=== PATIENT | female | born 1955 | race Caucasian/White ===

== ENCOUNTER → 2018-06-29 10:35 | Outpatient (CLI) | payer OTHER, SELFPAY ==
[2018-06-29 12:55] LABS: Absolute Lymphocyte Count 2.28 X10^3/ul (0.83-4.51); Absolute Neutrophil Count 4.1 X10^3/uL (2.0-7.7); Basophil# 0.04 X10^3/uL; Basophil% 0.6 % (0-1); Eosinophil# 0.15 X10^3/uL; Eosinophils% 2.1 % (0-5); Hematocrit 39.7 % (37-47); Lymphocyte # 2.28 X10^3/ul (4.0); Lymphocyte % 32.3 % (19-41); Mean Corp Hgb Conc 32.7 g/gl (32-36); Mean Corpuscular Hgb 30.7 pg (27.0-32.0); Mean Corpuscular Volume 93.6 fL (81-99); Mean Platelet Vol. 11.1 fl (6.2-12.0); Monocyte% 7.1 % (0-10); Neutrophil # 4.07 X10^3/uL (2.7-7.7); Neutrophil % 57.8 % (47-70); Platelet Count 304 K/mm3 (150-450); RBC Distribution Width CV 13.2 % (11.6-14.6); RBC Distribution Width SD 43.8 fl (35.1-43.9); Red Blood Count 4.24 M/mm3 (4.2-5.4); White Blood Count 7.1 K/mm3 (4.4-11.0)
[2018-06-29 13:03] LABS: POSITIVE COUNT NO; POSITIVE DIFFERENTIAL NO; POSITIVE MORPHOLOGY NO
[2018-06-29 13:22] LABS: ALB/GLOB Ratio 1.1 RATIO (0.9-2.4); AST(SGOT) 26 U/L (15-37); Alanine Aminotransfer ALT/SGPT 28 U/L (13-56); Alkaline Phosphatase 63 U/L (45-117); Anion Gap 8 (5-15); BUN 16 mg/dL (7-18); BUN/Creat Ratio 24.6 RATIO (10-20); Calcium,Total 9.3 mg/dL (8.5-10.1); Chloride 106 mmol/L (98-107); Creatinine, Serum 0.65 mg/dL (0.55-1.02); EST Glomerular Filtration Rate 98 mL/min (>60); Est Glom Filt Rate - Afr Amer 119 mL/min (>60); Globulin 3.5 g/dL (2.2-4.2); Glucose 90 mg/dL (74-106); Potassium 3.8 mmol/L (3.5-5.1); Protein, Total 7.5 g/dL (6.4-8.2); Sodium Level 143 mmol/L (136-145); Thyroid Stim Hormone (TSH) 2.79 uIU/mL (0.358-3.74)
[2018-06-30 11:12] LABS: Hep C Antibodies <0.1 s/co ratio (0.0-0.9)
== END ==
PROVIDERS: Family Provider Family Medicine Geriatric Medicine; PCP Family Medicine Geriatric Medicine; Visit Provider Family Medicine Geriatric Medicine
DX: I10 Essential (primary) hypertension (principal); Z13.89 Encounter for screening for other disorder
CPT/HCPCS: 36415; 80053; 84443; 85025; 86803

== ENCOUNTER → 2018-06-30 12:14 | Outpatient (CLI) | payer OTHER, SELFPAY ==
--- NOTE | 2018-06-30 12:18 | BI_ITS ---
MAMMOGRAPHY - BILATERAL SCREENING 3-D EMERALD SYNTHESIS REASON FOR EXAM: Female, 63 years old. Bilateral Screening 3-D tomosynthesis PERTINENT HISTORY: Asymptomatic. Patient reports loss of 15 pounds since last mammogram. Family history breast carcinoma, paternal aunt, age 70. TECHNIQUE: 2-D mammograms and 3-D Emerald synthesis of the breast (s) were performed. CAD was performed. COMPARISON: 06/29/2017 through 06/01/2014. FINDINGS: The breast composition is composed of scattered fibroglandular density. No significant asymmetric density, architecture distortion, abnormal microcalcification cluster, dominant mass, adenopathy, skin thickening or nipple retraction identified. Coarse benign-appearing calcifications. BI/SCREENING MAMM (CAD), BILAT IMPRESSION: No mammographic signs of malignancy. Routine yearly mammograms recommended. ASSESSMENT CATEGORY: BIRADS Category 2: Benign. A letter regarding these results will be sent to the patient by the facility within 30 days. FOLLOW UP RECOMMENDATION: Yearly follow up mammogram recommended. (A) Negative mammographic results should not deter biopsy as a palpable lesion should be followed on clinical grounds and biopsy performed if clinically persistent for 3 months or increasing size. Approximately 10% of breast cancers are not detected by mammography. A normal mammogram should not delay biopsy of a clinically suspicious abnormality. Electronically Signed: William Campos, at 21:40 EDT Tel , Service support ,
== END ==
PROVIDERS: Family Provider Family Medicine Geriatric Medicine; PCP Family Medicine Geriatric Medicine; Visit Provider Obstetrics & Gynecology
DX: Z12.31 Encounter for screening mammogram for malignant neoplasm of breast (principal); Z13.820 Encounter for screening for osteoporosis
CPT/HCPCS: 77063; 77067; 77080

== ENCOUNTER 2019-02-03 17:59 | Inpatient (IN) | payer OTHER, SELFPAY ==
[2019-02-03 17:59] VITALS: BP 125/61; PULSE 86; RESP 18; TEMP 36.4; O2SAT 95; BMI 26.8
[2019-02-03 19:11] VITALS: BP 136/87; PULSE 77; RESP 18; O2SAT 100
--- NOTE | 2019-02-03 19:11 | CT_ITS ---
STUDY: CT ABDOMEN AND PELVIS WITH CONTRAST REASON FOR EXAM: Female, 63 years old. Abdominal pain RADIATION DOSAGE (If Supplied By Facility): CTDIvol = ( 11.07 ) mGy, DLP = ( 655.64 ) mGycm TECHNIQUE: Transaxial images were obtained from the dome of the diaphragm to the symphysis pubis without oral contrast. Isovue 300 100ml IV/Oral was administered. Sagittal and coronal images were reconstructed. Individualized dose optimization techniques were used for this CT. COMPARISON: None. FINDINGS: There are mild lower lobe pulmonary infiltrates. The visualized portions of the heart are within normal limits. Normal liver. There is prior cholecystectomy with surgical clips in the gallbladder fossa. Normal spleen. Normal pancreas. There are borderline dilated bile ducts likely due to prior cholecystectomy. Normal bilateral adrenal glands. There is a 1.5 cm right renal cyst. Normal left kidney. There is a distended stomach. There is significant small bowel dilatation with transition point in the mid pelvis. Multiple colonic diverticula. There is a moderate colonic fecal loading. There is no free surgical clips within the pelvis. There are bilateral fatty inguinal hernias. Normal abdominal aorta. Normal inferior vena cava. Normal retroperitoneum. Normal urinary bladder. There is significant degenerative changes at the pubic symphysis. There is a bone island within the left iliac wing. There is significant spondylosis with sclerosis of the facets. CT/Abdomen/Pelvis WITH Contrast IMPRESSION: Small bowel obstruction Colonic diverticulosis no diverticulitis, moderate colonic fecal load Mild lower lobe pulmonary infiltrates 1.5 cm right renal cyst Distended stomach Electronically Signed: William Nunez, at 22:53 EDT Tel , Service support ,
[2019-02-03] MEDS: Ondansetron 4 MG/2 ML Vial IV (19:23)
[2019-02-03] MEDS: 0.9% Normal Saline 1,000 ML 1000 ML IV (19:23)
[2019-02-03] MEDS: Morphine 4 MG/ML Syringe IV ×2 (19:25→23:00)
[2019-02-03 19:35] LABS: Absolute Lymphocyte Count 1.34 X10^3/ul (0.83-4.51); Absolute Neutrophil Count 14.5 X10^3/uL (2.0-7.7); Basophil# 0.05 X10^3/uL; Basophil% 0.3 % (0-1); Eosinophil# 0.02 X10^3/uL; Eosinophils% 0.1 % (0-5); Hematocrit 44.6 % (37-47); Hemoglobin 15.1 g/dl (12.0-15.0); Lymphocyte # 1.34 X10^3/ul (4.0); Lymphocyte % 7.9 % (19-41); Mean Corp Hgb Conc 33.9 g/gl (32-36); Mean Corpuscular Hgb 30.6 pg (27.0-32.0); Mean Corpuscular Volume 90.3 fL (81-99); Mean Platelet Vol. 9.9 fl (6.2-12.0); Monocyte% 5.3 % (0-10); Neutrophil # 14.53 X10^3/uL (2.7-7.7); Neutrophil % 86.2 % (47-70); POSITIVE COUNT NO; POSITIVE DIFFERENTIAL NO; POSITIVE MORPHOLOGY NO; Platelet Count 318 K/mm3 (150-450); RBC Distribution Width CV 12.8 % (11.6-14.6); RBC Distribution Width SD 42.2 fl (35.1-43.9); Red Blood Count 4.94 M/mm3 (4.2-5.4); White Blood Count 16.9 K/mm3 (4.4-11.0)
[2019-02-03 19:48] LABS: ALB/GLOB Ratio 1.2 RATIO (0.9-2.4); AST(SGOT) 24 U/L (15-37); Alanine Aminotransfer ALT/SGPT 21 U/L (13-56); Albumin, Serum 4.9 g/dL (3.2-5.0); Alkaline Phosphatase 72 U/L (45-117); Anion Gap 9 (5-15); BUN 20 mg/dL (7-18); BUN/Creat Ratio 22.5 RATIO (10-20); Calcium,Total 10.6 mg/dL (8.5-10.1); Chloride 96 mmol/L (98-107); Creatinine, Serum 0.89 mg/dL (0.55-1.02); EST Glomerular Filtration Rate 68 mL/min (>60); Est Glom Filt Rate - Afr Amer 83 mL/min (>60); Estimated Creatinine Clearance 49.46 ml/min; Glucose 103 mg/dL (74-106); Lipase 150 U/L (73-393); Protein, Total 8.9 g/dL (6.4-8.2); Sodium Level 132 mmol/L (136-145)
--- NOTE | 2019-02-03 20:09 | ED.DCSUM_ITS ---
- ER Visit Summary Date of Service: 02/03/19 Chief Complaint: Abdominal pain History of Present Illness: The patient is a 63 F who presents with abdominal pain that began today. Patient describes the pain is cramping. Patient states the pain is intermittent. Patient states the pain started in her lower abdomen but is now diffuse. Patient states her pain is worse with movement. Patient admits to some nausea but denies any vomiting. Patient denies any diarrhea, melena, or hematochezia. Patient denies any urinary complaints. Physical Examination: Vital signs are stable. Patient is afebrile. Patient is in no acute distress. Oral mucosa is pink and moist. Neck is supple. Trachea is midline. There is no JVD noted. Heart was regular rate and rhythm. Lungs are clear and equal bilateral. Abdomen is soft. There is some left lower quadrant tenderness. There is no rebound or guarding noted. Cranial nerves II through XII are intact. There are no focal motor or sensory deficits noted. The remaining physical exam is within normal limits. Test Results: CBC showed leukocytosis of 16.9. Comprehensive metabolic profile showed a mild hypokalemia of 3.0. CT scan of the abdomen and pelvis shows a small bowel obstruction with a transition point in the mid pelvis. Emergency Department Course and Treatment: Patient was given morphine and Zofran here. Patient was given a repeat dose of morphine. Case was discussed with Dr. Sanchez. She recommended placing an NG tube. She also recommended obtaining a urinalysis. These were ordered. She will admit the patient to her service. Patient and family understood and were agreeable with the plan. All questions were answered. Disposition: Admit to hospital Impression: Small bowel obstruction This note was generated with [employer] dictation software. It may contain incorrect words, spelling, and punctuation that were not noted in review of the chart prior to signing ED Disposition - Plan for ED Patient: Disposition: Acute Care Hospital [facility] Diagnosis: Small bowel obstruction Referrals: Isai Leon Chi, MD [Primary Care Provider] -
[2019-02-03 23:00] VITALS: BP 130/89; PULSE 72; RESP 16; O2SAT 96
--- NOTE | 2019-02-03 23:29 | RAD_ITS ---
STUDY: X-RAY - ABDOMEN/PELVIS REASON FOR EXAM: Female, 63 years old. NG tube placement TECHNIQUE: 1 view COMPARISON: None. FINDINGS: The tip of a nasogastric tube is in the body of the stomach. Mild fecal stasis. Contrast outlines the collecting system. Clips in the right upper quadrant indicate previous cholecystectomy. RAD/Abdomen Single View (Portable) IMPRESSION: A nasogastric tube tip is in the body of the stomach Electronically Signed: Alejandro Nguyen MD at 2:33 EDT Tel , Service support ,
[2019-02-04] VITALS (13 sets, daily range): BP systolic 98–148; BP diastolic 61–84; PULSE 59–96; RESP 14–16; TEMP 36.4–37.3; O2SAT 94–99; BMI 26.8; BMI 27.4; BMI 27.3
--- NOTE | 2019-02-04 00:20 | HP.PCM_ITS ---
History of Present Illness Date of Admission: 02/04/19 The patient is a 63 year old F presented to the ER due to abdominal pain. Patient states she has had 3 previous episodes in the last year with pain in the left lower quadrant. However this 1 did not improve over the day- woke up in the morning and had pain also nausea denies any vomiting. Previously the others only lasted the a.m. and some of the afternoon or just in the a.m. She did did try to take increased fiber last episode which did not help and may have even made it worse per the patient. Patient states her pain prior to coming in with a 10/. Patient states she had bowel movements yesterday but they were small along with flatus leak yesterday but denies any today. Patient states she normally has bowel movements daily. CT of the abdomen pelvis did show a bowel obstruction initially called transition in the pelvis however patient does have left spigelian hernia. Past Medical History Allergies No Known Allergies Allergy (Verified 02/03/19 18:02) Home Medications: Ambulatory Orders Medication Instructions Recorded Aspirin [Aspir-Low] 81 mg PO DAILY 12/25/16 Biotin 5 mg PO DAILY 12/25/16 Calcium Carbonate/Vitamin D3 1 each PO DAILY 12/25/16 [Caltrate 600 Plus D3 Tablet] Cyanocobalamin (Vitamin B-12) 2,500 mcg PO DAILY 12/25/16 [Vitamin B12] Levothyroxine [Synthroid] 25 mcg PO DAILY 12/25/16 Losartan/Hydrochlorothiazide 1 each PO DAILY 12/25/16 [Losartan-Hctz 50-12.5 mg Tab] [place]-3S/Dha/Epa/Fish Oil [Fish 1 each PO DAILY 12/25/16 Oil [place]-3 Softgel] Vitamin E 400 unit PO DAILY 12/25/16 Zinc 100 mg PO DAILY 12/25/16 Doxycycline 100 mg PO BID 07/21/17 Prednisone 10 mg PO DAILY 07/21/17 Surgical History: cholecystectomy, - - left leg varicose veins, colonoscopy abt 5 years ago by Chloe Psychiatric History: No pertinent psych hx CLINICAL APPEALS RN History: No pertinent CLINICAL APPEALS RN history Lives: Spouse/ Significant Other Smoking Status: Never smoker Drugs: None - *Family History Maternal History Items: No pertinent history Review of Systems Constitutional: Reports: Anorexia. Denies: Fever Cardiovascular: Denies: Chest Pain VTE Information - Inpt Only VTE Present on Admission: Yes VTE Mechan Device Prophylaxis: SCD's Patient Problems: Active and Suspected Problems Small bowel obstruction (Acute) - Physical Exam General: Alert HEENT: Atraumatic Lungs: Normal air movement Cardiovascular: Regular rate Abdomen: Soft, Distended - moderate, Tender - LLQ, no PS, Hernia - left lower lat abd wall +bulge unable to reduce Extremities: No clubbing, No cyanosis, No edema Neurological: Cranial nerves II-XII grossly intact Psych/Mental Status: Normal Affect Vital Signs Temp Pulse Resp BP Pulse Ox 97.6 F L 72 16 130/89 H 96 02/03/19 17:59 02/03/19 23:00 02/03/19 23:00 02/03/19 23:00 02/03/19 23:00 Oxygen Delivery Method Room Air Weight: 142 lb Body Mass Index (BMI) 26.8 Laboratory Tests Past 24 Hrs 02/03/19 02/03/19 19:20 19:20 WBC 16.9 H RBC 4.94 Hgb 15.1 H Hct 44.6 MCV 90.3 MCH 30.6 MCHC 33.9 RDW 12.8 RDW Differential 42.2 Plt Count 318 MPV 9.9 Immature Gran % (Auto) 0.200 Neut % (Auto) 86.2 H Lymph % (Auto) 7.9 L [place] % (Auto) 5.3 Eos % (Auto) 0.1 Baso % (Auto) 0.3 Absolute Neuts (auto) 14.5 H Absolute Lymphs (auto) 1.34 Total Counted Not Reportable Sodium 132 L Potassium 3.0 L Chloride 96 L Carbon Dioxide 27.0 Anion Gap 9 BUN 20 H Creatinine 0.89 Estim Creat Clear Calc 49.46 Est GFR (MDRD) Af Amer 83 Est GFR (MDRD) Non-Af 68 BUN/Creatinine Ratio 22.5 H Glucose 103 Calcium 10.6 H Total Bilirubin 0.80 AST 24 ALT 21 Alkaline Phosphatase 72 Total Protein 8.9 H Albumin 4.9 Globulin 4.0 Albumin/Globulin Ratio 1.2 Lipase 150 Assessment/Plan All Active Problems Small bowel obstruction (Acute) 63-year-old female with bowel obstruction, incarcerated left spigelian hernia 1. In reviewing CT abdomen pelvis patient appears to have an incarcerated left abdominal wall hernia causing the obstruction, which wasn't in the original report. Discussed with patient and family and recommend surgery. will plan for exploratory laparoscopy, possible laparotomy, possible bowel resection, repair of hernia. Risks include but not limited to bleeding, infection, adhesions, injury to another organ (i.e SB, colon, etc.), recurrent hernia, and anesthesia. Patient no further questions at this time. Thi Sanchez M.D. Pager: [phone] [facility] [address] [place] [address] [address] [place] [address] Office: [phone]
[2019-02-04 00:27] LABS: Bacteria 0 SEEN /hpf (None Seen); Mucous, Urine 0 SEEN /hpf (<or=2+)
[2019-02-04 00:31] LABS: Color, Urine Yellow (Yellow); Glucose, Dipstick Normal (Normal); Ketone-Dipstick 15 mg/dl (Negative); Leukocyte Esterase-Dipstick Negative /ul (Negative); Nitrite-Dipstick Negative (Negative); Occult Blood-Urine 10 /ul (Negative); Protein-Dipstick Negative (Negative); Urine Bilirubin Dipstick Negative (Negative); Urine Clarity Clear (Clear); Urine Urobilinogen Normal (Normal)
[2019-02-04] MEDS: Oxymetazoline 0.05% 1 SPRAY SPRAY.BTL 2 SPRAY NASAL (00:39)
[2019-02-04 00:44] LABS: Red Blood Cells-Urine 0-5 SEEN /hpf (0-5); Squamous Epithelial Cells - UA 0-5 SEEN /hpf (5-10); White Blood Cells 0-5 SEEN /hpf (0-5)
--- NOTE | 2019-02-04 02:00 | COL_PTH ---
PATIENT: SHARON VANCE LOC: MS3 U#:[id number] AGE/SX: 63/F ROOM: GA307 RE02/04/[address]: Dr. Thi Sanchez MD : [id number] BED: 1 DIS: 02/07/2019 SPEC #: [id number] RECD: 02/06/19 07:51 STATUS: CHETAN REQ #: [id number] JULIEN: 02/04/19 02:[address]: Thi Sanchez DEPT: SURGICAL PATHOLOGY RECD BY: Miriam Fishman ENTERED: 02/06/19 09:18 SP TYPE: COLON OTHR DR: Dr. Isai Leon MD Tissues: Colon, NOS Procedures: Surgery Specimen Level V HEADER OPERATION: Exploratory laparoscopy converted to laparotomy, small bowel PRE-OP DIAGNOSIS: Incarcerated spigelian hernia, small bowel obstruction TISSUE SUBMITTED: Small bowel MICROSCOPIC DIAGNOSIS Small bowel, segmental resection: Serosal congestion, hemorrhage and fibrinoid material suggestive of possible adhesion. AM:jay 02/07/19 COMMENT Clinical correlation is suggested. Case has been reviewed in consultation with Dr. Christina who concurs with the above diagnosis. IDC:SUSIE MICROSCOPIC DESCRIPTION Slides are reviewed. GROSS DESCRIPTION Received in fixative is one container labeled with the patient's name and designated small bowel. The specimen consists of a segment of small bowel measuring 8 cm in length and 2 cm in diameter. The attached mesenteric fat measures 1.5 cm in width. Also present in the container is a donut-shaped tissue measuring 3.5 x 1 x 0.5 cm. Multiple liz are noted in this piece. Also present in the container are two small pieces of tissue with stapled possible bowel tissue measuring in aggregate 1.5 x 1.5 x 0.5 cm. Both resection margins of the bowel piece are stapled. 1 cm away from one resection margin is an area of serosal congestion that measures 4 cm in length. The mucosa appears unremarkable. Scrap Baller sections are submitted in five cassettes as follows: 1-4 - largest segment of bowel (1 - resection margin, 2 - congested serosal area of small bowel, 3 - loss prevention representative section from other area, 4 - mesenteric tissue), 5 - donut-shaped piece of tissue and smaller pieces of tissue. / SUSIE:jay 02/06/19 TC:5 CPT: 66236
--- NOTE | 2019-02-04 04:19 | PCM.OPRPT ---
Report of Operation Date of Procedure: 02/04/19 Pre-Operative Diagnosis: Incarcerated left spigelian hernia Post-Operative Diagnosis: Strangulated left spigelian hernia Surgery/Procedure Performed:: Exploratory laparoscopic converted to laparotomy, small bowel resection, repair of left spigelian hernia incident response engineer: Yanet Sexton Anesthesiologist: Kristopher Sharpe Special Medications: Cefotetan 2 g IV x1 Specimen's removed: Small bowel Estimated Blood Loss (mL): <60 cc Fluids Replaced: 2000 cc Description of Procedure: Indication: 63-year-old female presented to the ER due to left lower abdominal pain and diffuse abdominal pain with nausea. CT abdomen pelvis was done which consistent with a small bowel obstruction due to left spigelian hernia. NG was placed in the ER. Patient was brought to the operating room placed supine on the operating table. Correct patient, procedure, site, positioning, special equipment was verified prior to procedure. General anesthesia was induced. Patient abdomen was prepped draped in usual sterile fashion. An incision was made in the natural skin line above the umbilicus. The fascia was elevated and incised. The peritoneum was elevated and incised. Entry into the peritoneum was confirmed visually and no bowel was noted in the vicinity of the incision. Jones trocar was placed. The abdomen was insufflated with carbon dioxide to a pressure of 12-15 mmHg. Patient tolerated insufflation well. The laparoscope was then inserted and abdomen inspected. No injuries from initial trocar placement were noted. Additional trochars were then inserted in the following locations 5 mm trocar in the right lower quadrant. There is noted to be an incarcerated left spigelian hernia. This was able to be gently reduced however the bowel still had area of questionable viability. A lower midline incision was made with 15 blade scalpel. Deepened with electrocautery to the fascia. The abdomen was entered under direct visualization. A small wound protector was placed. Again the section of distal jejunum was visualized and still there is an area of questionable viability. This section of small bowel resected approximately 10 cm. The bowel was divided with a cutting linear stapler-DIEGO 75 at each resection margin and passed off the table as specimen. Thank antimesenteric angles of the proximal and distal segments were then approximated. Enterotomies were made in the antimesenteric borders and the cutting linear stapler inserted and fired. The lumen was inspected for hemostasis. The enterotomy was closed with a single firing of TL 60 stapler. Bleeding of the staple line was oversewn with 3-0 Vicryl. The anastomosis was assessed and felt to be patent and small bowel contents easily passed through. The mesentery was closed with a running 3-0 Vicryl suture. The peritoneum of the spigelian hernia was closed with 2-0 Vicryl sutures. The abdomen was reinsufflated with air and suture passer with 0 Prolene were used to close the spigelian hernia defect, which was small only about 1.1 cm. Again the anastomosis was visualized no further bleeding. Abdomen was irrigated with saline. Secondary trochars removed under direct vision. No bleeding was noted the trocar sites. The laparoscope was withdrawn and umbilical trocar removed. The abdomen was allowed to collapse. The fascia of the 12 mm trocar was closed with a [id number] 0 Vicryl suture. The lower midline incision was closed with 1-0 PDS. The skin was closed with sutures of 4-0 Monocryl and Steri-Strips. The patient was extubated. The patient tolerated procedure well and was taken to the postanesthesia care unit in stable condition. - Complications none
[2019-02-04] MEDS: Bupiv/Epi 0.5% Mpf 30 ML Vial (04:26)
--- NOTE | 2019-02-04 04:30 | OP.PCM_ITS ---
Report of Operation Date of Procedure: 02/04/19 Pre-Operative Diagnosis: Incarcerated left spigelian hernia Post-Operative Diagnosis: Strangulated left spigelian hernia Surgery/Procedure Performed:: Exploratory laparoscopic converted to laparotomy, small bowel resection, repair of left spigelian hernia personal banking officer: Yanet Sexton Anesthesiologist: Kristopher Sharpe Special Medications: Cefotetan 2 g IV x1 Specimen's removed: Small bowel Estimated Blood Loss (mL): <60 cc Fluids Replaced: 2000 cc Description of Procedure: Indication: 63-year-old female presented to the ER due to left lower abdominal pain and diffuse abdominal pain with nausea. CT abdomen pelvis was done which consistent with a small bowel obstruction due to left spigelian hernia. NG was placed in the ER. Patient was brought to the operating room placed supine on the operating table. Correct patient, procedure, site, positioning, special equipment was verified prior to procedure. General anesthesia was induced. Patient abdomen was prepped draped in usual sterile fashion. An incision was made in the natural skin line above the umbilicus. The fascia was elevated and incised. The peritoneum was elevated and incised. Entry into the peritoneum was confirmed visually and no bowel was noted in the vicinity of the incision. Jones trocar was placed. The abdomen was insufflated with carbon dioxide to a pressure of 12-15 mmHg. Patient tolerated insufflation well. The laparoscope was then inserted and abd omen inspected. No injuries from initial trocar placement were noted. Additional trochars were then inserted in the following locations 5 mm trocar in the right lower quadrant. There is noted to be an incarcerated left spigelian hernia. This was able to be gently reduced however the bowel still had area of questionable viability. A lower midline incision was made with 15 blade scalpel. Deepened with electrocautery to the fascia. The abdomen was entered under direct visualization. A small wound protector was placed. Again the section of distal jejunum was visualized and still there is an area of questionable viability. This section of small bowel resected approximately 10 cm. The bowel was divided with a cutting linear stapler-DIEGO 75 at each resection margin and passed off the table as specimen. Thank antimesenteric angles of the proximal and distal segments were then approximated. Enterotomies were made in the antimesenteric borders and the cutting linear stapler inserted and fired. The lumen was inspected for hemostasis. The enterotomy was closed with a single firing of TL 60 stapler. Bleeding of the staple line was oversewn with 3-0 Vicryl. The anastomosis was assessed and felt to be patent and small bowel contents easily passed through. The mesentery was closed with a running 3-0 Vicryl suture. The peritoneum of the spigelian hernia was closed with 2-0 Vicryl sutures. The abdomen was reinsufflated with air and suture passer with 0 Prolene were used to close the spigelian hernia defect, which was small only about 1.1 cm. Again the anastomosis was visualized no further bleeding. Abdomen was irrigated with saline. Secondary trochars removed under direct vision. No bleeding was noted the trocar sites. The laparoscope was withdrawn and umbilical trocar removed. The abdomen was allowed to collapse. The fascia of the 12 mm trocar was closed with a [id number] 0 Vicryl suture. The lower midline incision was closed with 1-0 PDS. The skin was closed with sutures of 4-0 Monocryl and Steri-Strips. The patient was extubated. The patient tolerated procedure well and was taken to the postanesthesia care unit in stable condition. - Complications none
[2019-02-04 05:31] LABS: Absolute Neutrophil Count 11.6 X10^3/uL (2.0-7.7); Basophil# 0.03 X10^3/uL; Basophil% 0.2 % (0-1); Eosinophil# 0.02 X10^3/uL; Eosinophils% 0.1 % (0-5); Hematocrit 37.8 % (37-47); Hemoglobin 12.5 g/dl (12.0-15.0); Lymphocyte % 9.4 % (19-41); Mean Corp Hgb Conc 33.1 g/gl (32-36); Mean Corpuscular Hgb 30.7 pg (27.0-32.0); Mean Corpuscular Volume 92.9 fL (81-99); Mean Platelet Vol. 10.1 fl (6.2-12.0); Monocyte# 0.87 X10^3/uL; Monocyte% 6.3 % (0-10); Neutrophil # 11.61 X10^3/uL (2.7-7.7); Neutrophil % 83.7 % (47-70); Platelet Count 287 K/mm3 (150-450); RBC Distribution Width CV 12.7 % (11.6-14.6); RBC Distribution Width SD 42.3 fl (35.1-43.9); Red Blood Count 4.07 M/mm3 (4.2-5.4); White Blood Count 13.9 K/mm3 (4.4-11.0)
[2019-02-04 05:35] LABS: POSITIVE COUNT NO; POSITIVE DIFFERENTIAL NO; POSITIVE MORPHOLOGY NO
[2019-02-04 05:40] LABS: Anion Gap 9 (5-15); BUN 19 mg/dL (7-18); BUN/Creat Ratio 16.8 RATIO (10-20); Calcium,Total 8.2 mg/dL (8.5-10.1); Chloride 104 mmol/L (98-107); Creatinine, Serum 1.13 mg/dL (0.55-1.02); EST Glomerular Filtration Rate 52 mL/min (>60); Est Glom Filt Rate - Afr Amer 63 mL/min (>60); Estimated Creatinine Clearance 38.95 ml/min; Glucose 149 mg/dL (74-106); Potassium 3.9 mmol/L (3.5-5.1); Sodium Level 139 mmol/L (136-145)
[2019-02-04] MEDS: Lactated Ringers 1,000 ML 999 ML IV (09:00)
[2019-02-04] MEDS: BENZOCAINE/MENTHOL 1 LOZENGE MUCOUS MEM ×4 (09:07→20:55)
--- NOTE | 2019-02-04 09:59 | PCM.PN.SRG ---
Patient Problems: Active and Suspected Problems Small bowel obstruction (Acute) Subjective: Patient's pain is controlled without any medications currently, she is complains of abdominal soreness. Patient's urine output was low with 25 cc from 6 to 7 AM. 1 L bolus ordered. - Physical Exam General: Alert, Oriented x3, Cooperative, No apparent distress Lungs: Normal air movement Cardiovascular: Regular rate Abdomen: Soft, Non-Distended, Tender - Properly tender, incisions dressed clean dry and intact. Extremities: No clubbing, No cyanosis, No edema Vital Signs Temp Pulse Resp BP Pulse Ox 99.1 F 88 16 113/72 97 02/04/19 09:56 02/04/19 09:56 02/04/19 09:56 02/04/19 09:56 02/04/19 09:56 Oxygen Delivery Method Room Air Weight: 144 lb 13.499 oz Body Mass Index (BMI) 27.3 Intake and Output for Last 24 Hours 02/02/19 02/03/19 02/04/19 23:59 23:59 23:59 Intake Total 3319 / 3319 Output Total 180 / 180 Balance 3139 / 3139 Laboratory Tests Past 24 Hrs 02/03/19 02/03/19 02/04/19 19:20 19:20 00:20 WBC 16.9 H RBC 4.94 Hgb 15.1 H Hct 44.6 MCV 90.3 MCH 30.6 MCHC 33.9 RDW 12.8 RDW Differential 42.2 Plt Count 318 MPV 9.9 Immature Gran % (Auto) 0.200 Neut % (Auto) 86.2 H Lymph % (Auto) 7.9 L [place] % (Auto) 5.3 Eos % (Auto) 0.1 Baso % (Auto) 0.3 Absolute Neuts (auto) 14.5 H Absolute Lymphs (auto) 1.34 Total Counted Not Reportable Sodium 132 L Potassium 3.0 L Chloride 96 L Carbon Dioxide 27.0 Anion Gap 9 BUN 20 H Creatinine 0.89 Estim Creat Clear Calc 49.46 Est GFR (MDRD) Af Amer 83 Est GFR (MDRD) Non-Af 68 BUN/Creatinine Ratio 22.5 H Glucose 103 Calcium 10.6 H Total Bilirubin 0.80 AST 24 ALT 21 Alkaline Phosphatase 72 Total Protein 8.9 H Albumin 4.9 Globulin 4.0 Albumin/Globulin Ratio 1.2 Lipase 150 Urine Color Yellow Urine Clarity Clear Urine pH 7.0 Ur Specific [place] 1.010 Urine Protein Negative Urine Glucose (UA) Normal Urine Ketones 15 H Urine Occult Blood 10 H Urine Nitrite Negative Urine Bilirubin Negative Urine Urobilinogen Normal Ur Leukocyte Esterase Negative Urine RBC 0-5 SEEN Urine WBC 0-5 SEEN Ur Squamous Epith Cells 0-5 SEEN Urine Bacteria 0 SEEN Urine Mucus 0 SEEN 02/04/19 02/04/19 05:20 05:20 WBC 13.9 H RBC 4.07 L Hgb 12.5 Hct 37.8 MCV 92.9 MCH 30.7 MCHC 33.1 RDW 12.7 RDW Differential 42.3 Plt Count 287 MPV 10.1 Immature Gran % (Auto) 0.300 Neut % (Auto) 83.7 H Lymph % (Auto) 9.4 L [place] % (Auto) 6.3 Eos % (Auto) 0.1 Baso % (Auto) 0.2 Absolute Neuts (auto) 11.6 H Absolute Lymphs (auto) 1.30 Total Counted Not Reportable Sodium 139 Potassium 3.9 Chloride 104 Carbon Dioxide 26.0 Anion Gap 9 BUN 19 H Creatinine 1.13 H Estim Creat Clear Calc 38.95 Est GFR (MDRD) Af Amer 63 Est GFR (MDRD) Non-Af 52 L BUN/Creatinine Ratio 16.8 Glucose 149 H Calcium 8.2 L Total Bilirubin AST ALT Alkaline Phosphatase Total Protein Albumin Globulin Albumin/Globulin Ratio Lipase Urine Color Urine Clarity Urine pH Ur Specific [place] Urine Protein Urine Glucose (UA) Urine Ketones Urine Occult Blood Urine Nitrite Urine Bilirubin Urine Urobilinogen Ur Leukocyte Esterase Urine RBC Urine WBC Ur Squamous Epith Cells Urine Bacteria Urine Mucus Medical Necessity - Tobacco Use Smoking Status: Former smoker Assessment/Plan All Active Problems Small bowel obstruction (Acute) 61-year-old female postop day 0 status post exploratory laparoscopy, converted to laparotomy with small bowel resection, repair of left spigelian hernia 1. Continue NG/IV fluids/n.p.o. Will await bowel function. Will check NG output later today if minimal may be able to do a clamp trial. 2. Encourage ambulation 3. Pain control 4. Low urine output Kay for I's and O's, 1 L bolus given Thi Sanchez M.D. Pager: [phone] [facility] [address], [address], [address] [place] [address] Office: [phone]
--- NOTE | 2019-02-04 11:26 | CM.UR ---
RN CM Assessment Met face to face with patient for initial transition planning/care coordination assessment. Introduced myself and my role. Verb understanding and agreement for assessment. Presentation: Presented to ER for complaint of abd pain. PCP: Dr. Leon Specialists: clinical rehabilitation specialist Preferred Pharmacy: [facility] Insurance: [employer] Prescription Benefit: Yes via [employer]. Able to afford copays. LNOK: Thaddeus [place] Home: 2 story with first floor master and bathroom. ADLs: Independent with all ADLs. Transportation: Drives self, . DME: wheelchair SNF/HHC: None Passport/waiver conference services director: None Advance Directives: has both living will and DPOA. Explained none on file. , Thaddeus, is DPOA. Requested that she have him bring in copy of advance directives. Verb understanding. DC PLAN: Home. [facility] has a lot of family support. Virginia Campos RN, CCM.
[2019-02-04] MEDS: Morphine 2 MG/ML Syringe IV ×3 (13:31→21:42)
[2019-02-04] MEDS: 0.9% NaCl Peripheral Flush Adult/Peds IV ×2 (13:32→16:46)
--- NOTE | 2019-02-04 17:14 | NURSING ---
NG tube clamped per dr. ramirez's order at 1330.
--- NOTE | 2019-02-04 19:04 | NURSING ---
Dr Sanchez notified of output of 550cc of urine from grullon from ~[address] Sanchez called and notified this RN that ok to remove grullon at this time. Same completed- pt tolerated well.
[2019-02-04] MEDS: Lactated Ringers 1,000 ML 150 ML IV (20:50)
[2019-02-05] VITALS (7 sets, daily range): BP systolic 121–132; BP diastolic 74–81; PULSE 58–76; RESP 15–16; TEMP 37–37.2; O2SAT 93–100
[2019-02-05] MEDS: Lactated Ringers 1,000 ML 150 ML IV (03:24)
[2019-02-05] MEDS: Levothyroxine 25 MCG TABLET PO (06:20)
[2019-02-05 06:49] LABS: Absolute Lymphocyte Count 1.86 X10^3/ul (0.83-4.51); Absolute Neutrophil Count 6.3 X10^3/uL (2.0-7.7); Basophil# 0.04 X10^3/uL; Basophil% 0.4 % (0-1); Eosinophil# 0.11 X10^3/uL; Eosinophils% 1.2 % (0-5); Hematocrit 34.6 % (37-47); Lymphocyte # 1.86 X10^3/ul (4.0); Mean Corp Hgb Conc 31.8 g/gl (32-36); Mean Corpuscular Hgb 30.3 pg (27.0-32.0); Mean Corpuscular Volume 95.3 fL (81-99); Monocyte# 0.93 X10^3/uL; Neutrophil # 6.34 X10^3/uL (2.7-7.7); Neutrophil % 68.1 % (47-70); Platelet Count 249 K/mm3 (150-450); RBC Distribution Width CV 13.3 % (11.6-14.6); RBC Distribution Width SD 46.8 fl (35.1-43.9); Red Blood Count 3.63 M/mm3 (4.2-5.4); White Blood Count 9.3 K/mm3 (4.4-11.0)
[2019-02-05 06:50] LABS: POSITIVE COUNT NO; POSITIVE DIFFERENTIAL NO; POSITIVE MORPHOLOGY NO
[2019-02-05 07:37] LABS: Anion Gap 4 (5-15); BUN 10 mg/dL (7-18); BUN/Creat Ratio 17.8 RATIO (10-20); Calcium,Total 7.8 mg/dL (8.5-10.1); Chloride 109 mmol/L (98-107); Creatinine, Serum 0.56 mg/dL (0.55-1.02); EST Glomerular Filtration Rate 116 mL/min (>60); Est Glom Filt Rate - Afr Amer 140 mL/min (>60); Glucose 95 mg/dL (74-106); Potassium 3.9 mmol/L (3.5-5.1); Sodium Level 141 mmol/L (136-145)
[2019-02-05] MEDS: Ketorolac 30 MG/ML Syringe 15 MG IV (08:39)
[2019-02-05] MEDS: 0.9% NaCl Peripheral Flush Adult/Peds IV (08:40)
--- NOTE | 2019-02-05 08:50 | PCM.PN.SRG ---
Patient Problems: Active and Suspected Problems Small bowel obstruction (Acute) Subjective: Patient ambulating, no flatus, pain controlled, denies any nausea or vomiting NG was removed yesterday and Kay was DC'd yesterday due to good urine output - Physical Exam General: Alert, Oriented x3, Cooperative, No apparent distress Abdomen: Soft, Distended - Mild, Tender - Really tender near incision clean dry and intact/dressed, no peritoneal signs Vital Signs Temp Pulse Resp BP Pulse Ox 98.2 F 60 16 147/86 H 98 02/06/19 07:41 02/06/19 07:41 02/06/19 07:41 02/06/19 07:41 02/06/19 07:41 Oxygen Delivery Method Room Air Weight: 144 lb 13.499 oz Body Mass Index (BMI) 27.3 Intake and Output for Last 24 Hours 02/04/19 02/05/19 02/06/19 23:59 23:59 23:59 Intake Total 5994 / 5994 2471 / 2471 1530 / 1530 Output Total 1405 / 1405 1000 / 1000 1250 / 1250 Balance 4589 / 4589 1471 / 1471 280 / 280 Laboratory Tests Past 24 Hrs 02/06/19 05:28 Sodium 140 Potassium 3.4 L Chloride 108 H Carbon Dioxide 27.0 Anion Gap 5 BUN 10 Creatinine 0.46 L Estim Creat Clear Calc 95.69 Est GFR (MDRD) Af Amer 177 Est GFR (MDRD) Non-Af 146 BUN/Creatinine Ratio 21.8 H Glucose 79 Calcium 7.7 L Medical Necessity - Tobacco Use Smoking Status: Former smoker Assessment/Plan All Active Problems Small bowel obstruction (Acute) 61-year-old female postop day 1 status post exploratory laparoscopy, converted to laparotomy with small bowel resection, repair of left spigelian hernia 1. Continue n.p.o., decrease IV fluids due to good urine output. Will await bowel function. 2. Encourage ambulation 3. Pain control Thi Sanchez M.D. Pager: [phone] [facility] [address] [place] [address], Outpatient [facility]ilion, [address] [place] [address] Office: [phone]
[2019-02-05] MEDS: Lactated Ringers 1,000 ML 100 ML IV ×2 (10:35→20:24)
--- NOTE | 2019-02-05 15:54 | NURSING ---
Up walking hallway 3 times so far this shift-- at least 2 laps each time- around entire unit
[2019-02-06] MEDS: Ketorolac 30 MG/ML Syringe 15 MG IV ×2 (00:42→06:21)
[2019-02-06 06:00] VITALS: BP 134/76; PULSE 70; RESP 16; TEMP 36.9; O2SAT 95
[2019-02-06] MEDS: Levothyroxine 25 MCG TABLET PO (06:07)
[2019-02-06] MEDS: Lactated Ringers 1,000 ML 100 ML IV (06:07)
[2019-02-06 06:34] LABS: Anion Gap 5 (5-15); BUN 10 mg/dL (7-18); BUN/Creat Ratio 21.8 RATIO (10-20); Calcium,Total 7.7 mg/dL (8.5-10.1); Chloride 108 mmol/L (98-107); Creatinine, Serum 0.46 mg/dL (0.55-1.02); EST Glomerular Filtration Rate 146 mL/min (>60); Est Glom Filt Rate - Afr Amer 177 mL/min (>60); Estimated Creatinine Clearance 95.69 ml/min; Glucose 79 mg/dL (74-106); Potassium 3.4 mmol/L (3.5-5.1); Sodium Level 140 mmol/L (136-145)
[2019-02-06 07:41] VITALS: BP 147/86; PULSE 60; RESP 16; TEMP 36.8; O2SAT 98
--- NOTE | 2019-02-06 08:39 | PCM.PN.SRG ---
Patient Problems: Active and Suspected Problems Small bowel obstruction (Acute) Subjective: Patient denies nausea or vomiting, pain controlled with Toradol, ambulating halls, positive flatus - Physical Exam General: Alert, Oriented x3, Cooperative, No apparent distress Lungs: Normal air movement Cardiovascular: Regular rate Abdomen: Soft, Distended - Mild, Tender - Near incisions clean dry and intact with Steri-Strips, no peritoneal signs Extremities: No clubbing, No cyanosis, No edema Vital Signs Temp Pulse Resp BP Pulse Ox 98.2 F 60 16 147/86 H 98 02/06/19 07:41 02/06/19 07:41 02/06/19 07:41 02/06/19 07:41 02/06/19 07:41 Oxygen Delivery Method Room Air Weight: 144 lb 13.499 oz Body Mass Index (BMI) 27.3 Intake and Output for Last 24 Hours 02/04/19 02/05/19 02/06/19 23:59 23:59 23:59 Intake Total 5994 / 5994 2471 / 2471 1530 / 1530 Output Total 1405 / 1405 1000 / 1000 1250 / 1250 Balance 4589 / 4589 1471 / 1471 280 / 280 Laboratory Tests Past 24 Hrs 02/06/19 05:28 Sodium 140 Potassium 3.4 L Chloride 108 H Carbon Dioxide 27.0 Anion Gap 5 BUN 10 Creatinine 0.46 L Estim Creat Clear Calc 95.69 Est GFR (MDRD) Af Amer 177 Est GFR (MDRD) Non-Af 146 BUN/Creatinine Ratio 21.8 H Glucose 79 Calcium 7.7 L Medical Necessity - Tobacco Use Smoking Status: Former smoker Assessment/Plan All Active Problems Small bowel obstruction (Acute) 61-year-old female postop day 2 status post exploratory laparoscopy, converted to laparotomy with small bowel resection, repair of left spigelian hernia 1. Okay for sips, decrease IV fluids due to good urine output. Will await increased bowel function. 2. Encourage ambulation 3. Pain control Thi Sanchez M.D. Pager: [phone] [facility] [address] [place] [address], Outpatient Pavilion, [address] [place] [address] Office: [phone]
--- NOTE | 2019-02-06 08:42 | PN.SURG_ITS ---
Patient Problems: Active and Suspected Problems Small bowel obstruction (Acute) Subjective: Patient denies nausea or vomiting, pain controlled with Toradol, ambulating halls, positive flatus - Physical Exam General: Alert, Oriented x3, Cooperative, No apparent distress Lungs: Normal air movement Cardiovascular: Regular rate Abdomen: Soft, Distended - Mild, Tender - Near incisions clean dry and intact with Steri-Strips, no peritoneal signs Extremities: No clubbing, No cyanosis, No edema Vital Signs Temp Pulse Resp BP Pulse Ox 98.2 F 60 16 147/86 H 98 02/06/19 07:41 02/06/19 07:41 02/06/19 07:41 02/06/19 07:41 02/06/19 07:41 Oxygen Delivery Method Room Air Weight: 144 lb 13.499 oz Body Mass Index (BMI) 27.3 Intake and Output for Last 24 Hours 02/04/19 02/05/19 02/06/19 23:59 23:59 23:59 Intake Total 5994 / 5994 2471 / 2471 1530 / 1530 Output Total 1405 / 1405 1000 / 1000 1250 / 1250 Balance 4589 / 4589 1471 / 1471 280 / 280 Laboratory Tests Past 24 Hrs 02/06/19 05:28 Sodium 140 Potassium 3.4 L Chloride 108 H Carbon Dioxide 27.0 Anion Gap 5 BUN 10 Creatinine 0.46 L Estim Creat Clear Calc 95.69 Est GFR (MDRD) Af Amer 177 Est GFR (MDRD) Non-Af 146 BUN/Creatinine Ratio 21.8 H Glucose 79 Calcium 7.7 L Medical Necessity - Tobacco Use Smoking Status: Former smoker Assessment/Plan All Active Problems Small bowel obstruction (Acute) 61-year-old female postop day 2 status post exploratory laparoscopy, converted to laparotomy with small bowel resection, repair of left spigelian hernia 1. Okay for sips, decrease IV fluids due to good urine output. Will await increased bowel function. 2. Encourage ambulation 3. Pain control Thi Sanchez M.D. Pager: [phone] [facility] [address] [place] [address], Outpatient Pavilion, [address] [place] [address] Office: [phone]
--- NOTE | 2019-02-06 08:43 | PN.SURG_ITS ---
Patient Problems: Active and Suspected Problems Small bowel obstruction (Acute) Subjective: Patient ambulating, no flatus, pain controlled, denies any nausea or vomiting NG was removed yesterday and Kay was DC'd yesterday due to good urine output - Physical Exam General: Alert, Oriented x3, Cooperative, No apparent distress Abdomen: Soft, Distended - Mild, Tender - Really tender near incision clean dry and intact/dressed, no peritoneal signs Vital Signs Temp Pulse Resp BP Pulse Ox 98.2 F 60 16 147/86 H 98 02/06/19 07:41 02/06/19 07:41 02/06/19 07:41 02/06/19 07:41 02/06/19 07:41 Oxygen Delivery Method Room Air Weight: 144 lb 13.499 oz Body Mass Index (BMI) 27.3 Intake and Output for Last 24 Hours 02/04/19 02/05/19 02/06/19 23:59 23:59 23:59 Intake Total 5994 / 5994 2471 / 2471 1530 / 1530 Output Total 1405 / 1405 1000 / 1000 1250 / 1250 Balance 4589 / 4589 1471 / 1471 280 / 280 Laboratory Tests Past 24 Hrs 02/06/19 05:28 Sodium 140 Potassium 3.4 L Chloride 108 H Carbon Dioxide 27.0 Anion Gap 5 BUN 10 Creatinine 0.46 L Estim Creat Clear Calc 95.69 Est GFR (MDRD) Af Amer 177 Est GFR (MDRD) Non-Af 146 BUN/Creatinine Ratio 21.8 H Glucose 79 Calcium 7.7 L Medical Necessity - Tobacco Use Smoking Status: Former smoker Assessment/Plan All Active Problems Small bowel obstruction (Acute) 61-year-old female postop day 1 status post exploratory laparoscopy, converted to laparotomy with small bowel resection, repair of left spigelian hernia 1. Continue n.p.o., decrease IV fluids due to good urine output. Will await bowel function. 2. Encourage ambulation 3. Pain control Thi Sanchez M.D. Pager: [phone] [facility] [address] [place] [address], Outpatient Pavilion, [address] [place] [address] Office: [phone]
[2019-02-06] MEDS: Losartan Potassium 50 MG Tablet PO (11:25)
[2019-02-06] MEDS: hydroCHLOROthiazide 12.5mg 12.5 MG PO (11:26)
[2019-02-06 15:12] VITALS: BP 139/87; PULSE 74; RESP 16; TEMP 37; O2SAT 98
[2019-02-06 21:05] VITALS: BP 135/85; PULSE 73; RESP 16; TEMP 36.7; O2SAT 98
[2019-02-07 04:20] VITALS: BP 144/90; PULSE 64; RESP 16; TEMP 36.8; O2SAT 99
[2019-02-07] MEDS: Acetaminophen 325 MG Tablet 650 MG PO (04:31)
[2019-02-07] MEDS: Levothyroxine 25 MCG TABLET PO (06:24)
--- NOTE | 2019-02-07 07:20 | PN.SURG_ITS ---
Patient Problems: Active and Suspected Problems Small bowel obstruction (Acute) Subjective: Positive bowel movement, tolerating soft diet, ambulating - Physical Exam General: Alert, Oriented x3, Cooperative, No apparent distress HEENT: Atraumatic Lungs: Normal air movement Cardiovascular: Regular rate Abdomen: Soft, Non-Distended, Tender - Near incision, incisions clean dry and intact with Steri-Strips, no peritoneal signs Extremities: No clubbing, No cyanosis, No edema Vital Signs Temp Pulse Resp BP Pulse Ox 98.2 F 64 16 144/90 H 99 02/07/19 04:20 02/07/19 04:20 02/07/19 04:20 02/07/19 04:20 02/07/19 04:20 Oxygen Delivery Method Room Air Weight: 144 lb 13.499 oz Body Mass Index (BMI) 27.3 Intake and Output for Last 24 Hours 02/05/19 02/06/19 02/07/19 23:59 23:59 23:59 Intake Total 2471 / 2471 2366 / 2366 960 / 960 Output Total 1000 / 1000 2125 / 2125 2800 / 2800 Balance 1471 / 1471 241 / 241 -1840 / -1840 Medical Necessity - Tobacco Use Smoking Status: Former smoker Assessment/Plan All Active Problems Small bowel obstruction (Acute) 61-year-old female postop day 3 status post exploratory laparoscopy, converted to laparotomy with small bowel resection, repair of left spigelian hernia 1. Positive bowel function/bowel movements patient tolerated soft diet plan to [place] today Thi Sanchez M.D. Pager: [phone] [facility] [address] [place] [address], [facility], [address] [place] [id number] Office: [phone]
--- NOTE | 2019-02-07 07:20 | PCM.DC.GS ---
Discharge Diet: Light diet - advance as tolerated Discharge Activity: May not drive while taking narcotic pain medications., May Shower Lifting Restrictions: no lifting >20 lb for 4 weeks after surgery Call your doctor if your incision/area has: Continuous Slow Oozing, Sudden Increased Bleeding, Increased Pain/ Swelling, Increased Redness, Foul Smelling Discharge, Swelling at the incision site Call your doctor if you observe: Fever of 101 or Higher Additional Instructions: Okay to take ibuprofen 400-600 mg PO q6hr PRN along with the oxycodone. Avoid Tylenol since there is already Tylenol in the oxycodone. Take all pain meds with food. Oxycodone can cause constipation recommend taking daily stool softener (i.e. Colace/docusate) while taking the pain meds. Allergies/Adverse Reactions: Allergies No Known Allergies Allergy (Verified 02/03/19 18:02) Medications to take at Discharge Aspirin [Aspir-Low] 81 mg PO DAILY 12/25/16 Biotin 5 mg PO DAILY 12/25/16 Calcium Carbonate/Vitamin D3 [Caltrate 600 Plus D3 Tablet] 1 each PO DAILY 12/25/16 Cyanocobalamin (Vitamin B-12) [Vitamin B12] 2,500 mcg PO DAILY 12/25/16 Levothyroxine [Synthroid] 25 mcg PO DAILY 12/25/16 Losartan/Hydrochlorothiazide [Losartan-Hctz 50-12.5 mg Tab] 1 each PO DAILY 12/25/16 [place]-3S/Dha/Epa/Fish Oil [Fish Oil [place]-3 Softgel] 1 each PO DAILY 12/25/16 Vitamin E 400 unit PO DAILY 12/25/16 Oxycodone HCl/Acetaminophen [Percocet 5/325] 1 - 2 tablet PO Q6H PRN PRN 4 Days #15 tablet 02/07/19 Primary Care Physician: Isai Leon Chi, MD [Primary Care Provider] - Test Results: Test results from this visit will be discussed in further detail at your follow-up appointment, if applicable. Please Follow Up With: Thi Sanchez MD - After 5:00/weekends call [phone] with any questions When: Call the office [phone] for a follow-up appointment 2 weeks Proposed Discharge Date: 02/07/19
--- NOTE | 2019-02-07 07:23 | DCINST_ITS ---
Discharge Diet: Light diet - advance as tolerated Discharge Activity: May not drive while taking narcotic pain medications., May Shower Lifting Restrictions: no lifting >20 lb for 4 weeks after surgery Call your doctor if your incision/area has: Continuous Slow Oozing, Sudden Increased Bleeding, Increased Pain/ Swelling, Increased Redness, Foul Smelling Discharge, Swelling at the incision site Call your doctor if you observe: Fever of 101 or Higher Additional Instructions: Okay to take ibuprofen 400-600 mg PO q6hr PRN along with the oxycodone. Avoid Tylenol since there is already Tylenol in the oxycodone. Take all pain meds wi th food. Oxycodone can cause constipation recommend taking daily stool softener (i.e. Colace/docusate) while taking the pain meds. Allergies/Adverse Reactions: Allergies No Known Allergies Allergy (Verified 02/03/19 18:02) Medications to take at Discharge Aspirin [Aspir-Low] 81 mg PO DAILY 12/25/16 Biotin 5 mg PO DAILY 12/25/16 Calcium Carbonate/Vitamin D3 [Caltrate 600 Plus D3 Tablet] 1 each PO DAILY 12/25/16 Cyanocobalamin (Vitamin B-12) [Vitamin B12] 2,500 mcg PO DAILY 12/25/16 Levothyroxine [Synthroid] 25 mcg PO DAILY 12/25/16 Losartan/Hydrochlorothiazide [Losartan-Hctz 50-12.5 mg Tab] 1 each PO DAILY 12/25/16 [place]-3S/Dha/Epa/Fish Oil [Fish Oil [place]-3 Softgel] 1 each PO DAILY 12/25/16 Vitamin E 400 unit PO DAILY 12/25/16 Oxycodone HCl/Acetaminophen [Percocet 5/325] 1 - 2 tablet PO Q6H PRN PRN 4 Days #15 tablet 02/07/19 Primary Care Physician: Isai Leon Chi, MD [Primary Care Provider] - Test Results: Test results from this visit will be discussed in further detail at your follow- up appointment, if applicable. Please Follow Up With: Thi Sanchez MD - After 5:00/weekends call [phone] with any questions When: Call the office [phone] for a follow-up appointment 2 weeks Proposed Discharge Date: 02/07/19
[2019-02-07 09:37] VITALS: BP 122/81; PULSE 74; RESP 16; TEMP 36.7; O2SAT 96
--- NOTE | 2019-02-07 10:09 | PCM.DC.SUM ---
Discharge Date and Diagnosis Date of Admission: 02/04/19 Date of Discharge: 02/07/19 - Primary Discharge Diagnosis Strangulated left spigelian hernia Small bowel obstruction Hospital Course and Treatment Imaging Results: Clinical Impression(s) from Imaging Studies Abdomen/Pelvis CT 02/03/19 19:11 IMPRESSION: Small bowel obstruction Colonic diverticulosis no diverticulitis, moderate colonic fecal load Mild lower lobe pulmonary infiltrates 1.5 cm right renal cyst Distended stomach Electronically Signed: William Nunez at 22:53 EDT Tel , Service support , Left spigelian hernia containing bowel causing the obstruction KUB X-Ray 02/03/19 23:29 IMPRESSION: A nasogastric tube tip is in the body of the stomach Electronically Signed: Alejandro Nguyen MD at 2:33 EDT Tel , Service support , Operations: - - Exploratory laparoscopy converted to mini laparotomy, small bowel resection, repair of left spigelian hernia 02/04/19 Procedures: None Summary of Care Provided: The patient is a 63 year old F resents to the ER 02/03/19 due to diffuse abdominal pain initially started in the left lower quadrant. Patient states she had several episodes of previous pain starting in the left lower quadrant however these did not last as long. Patient states she has had some nausea denies any vomiting. Patient underwent a CT abdomen pelvis which did show bowel obstruction however the spigelian hernia in the left lower quadrant was not called on the initial report which did contain bowel and was the cause of the obstruction. This was unable to be reduced at bedside. Patient's white blood count was also 16.9 on admit. Patient was taken to the OR for exploratory laparoscopy converted to mini laparotomy, small bowel resection, repair of left spigelian hernia. Postoperatively patient did well was kept n.p.o. with IV fluids until she was able to regain bowel function and have a bowel movement. By postop day 2 patient did have flatus as well as a bowel movement was able to be started on clear liquids then advance to soft diet. Postop day 3 she had been tolerating soft diet ambulating pains been controlled was able be discharged home. - Physical Exam General: Alert, Oriented x3, Cooperative, No apparent distress HEENT: Atraumatic Lungs: Normal air movement Cardiovascular: Regular rate Abdomen: Soft, Non-Distended, Tender - Near incision appropriately, incision clean dry and intact with Steri-Strips Extremities: No clubbing, No cyanosis, No edema Neurological: Cranial nerves II-XII grossly intact Psych/Mental Status: Normal Affect Vital Signs Temp Pulse Resp BP Pulse Ox 98.1 F 74 16 122/81 H 96 02/07/19 09:37 02/07/19 09:37 02/07/19 09:37 02/07/19 09:37 02/07/19 09:37 Oxygen Delivery Method Room Air Weight: 144 lb 13.499 oz Body Mass Index (BMI) 27.3 Intake and Output for Last 24 Hours 02/05/19 02/06/19 02/07/19 23:59 23:59 23:59 Intake Total 2471 / 2471 2366 / 2366 960 / 960 Output Total 1000 / 1000 2125 / 2125 2800 / 2800 Balance 1471 / 1471 241 / 241 -1840 / -1840 Discharge Diet: Light diet - advance as tolerated Discharge Activity: May not drive while taking narcotic pain medications., May Shower Call your doctor if your incision/area has: Continuous Slow Oozing, Sudden Increased Bleeding, Increased Pain/ Swelling, Increased Redness, Foul Smelling Discharge, Swelling at the incision site Call your doctor if you observe: Fever of 101 or Higher Cleanse incision/area with: Soap & Water - Do not scrub but okay for water to run over the area Home Medications: Medications to take at Discharge Aspirin [Aspir-Low] 81 mg PO DAILY 12/25/16 Biotin 5 mg PO DAILY 12/25/16 Calcium Carbonate/Vitamin D3 [Caltrate 600 Plus D3 Tablet] 1 each PO DAILY 12/25/16 Cyanocobalamin (Vitamin B-12) [Vitamin B12] 2,500 mcg PO DAILY 12/25/16 Levothyroxine [Synthroid] 25 mcg PO DAILY 12/25/16 Losartan/Hydrochlorothiazide [Losartan-Hctz 50-12.5 mg Tab] 1 each PO DAILY 12/25/16 [place]-3S/Dha/Epa/Fish Oil [Fish Oil [place]-3 Softgel] 1 each PO DAILY 12/25/16 Vitamin E 400 unit PO DAILY 12/25/16 Oxycodone HCl/Acetaminophen [Percocet 5/325] 1 - 2 tablet PO Q6H PRN PRN 4 Days #15 tablet 02/07/19 Following Prescrptions Were Given to Patient: Oxycodone HCl/Acetaminophen [Percocet 5/325] 1 - 2 tablet PO Q6H PRN PRN 4 Days #15 tablet PRN Reason: Pain Primary Care Physician: Isai Leon Chi, MD [Primary Care Provider] - Please Follow Up With: Thi Sanchez MD - After 5:00/weekends call [phone] with any questions When: Call the office [phone] for a follow-up appointment 2 weeks Additional Instructions: Okay to take ibuprofen 400-600 mg PO q6hr PRN along with the oxycodone. Avoid Tylenol since there is already Tylenol in the oxycodone. Take all pain meds with food. Oxycodone can cause constipation recommend taking daily stool softener (i.e. Colace/docusate) while taking the pain meds. Disposition: Home Minutes spent on discharge:: 15 Patient Condition:: Good Medical Necessity - Tobacco Use Smoking Status: Former smoker Meaningful Use Info Meaningful Use Diagnoses (Choose all that apply): None applicable
--- NOTE | 2019-02-07 10:14 | DS.PCM_ITS ---
Discharge Date and Diagnosis Date of Admission: 02/04/19 Date of Discharge: 02/07/19 - Primary Discharge Diagnosis Strangulated left spigelian hernia Small bowel obstruction Hospital Course and Treatment Imaging Results: Clinical Impression(s) from Imaging Studies Abdomen/Pelvis CT 02/03/19 19:11 IMPRESSION: Small bowel obstruction Colonic diverticulosis no diverticulitis, moderate colonic fecal load Mild lower lobe pulmonary infiltrates 1.5 cm right renal cyst Distended stomach Electronically Signed: William Nunez at 22:53 EDT Tel , Service support , Left spigelian hernia containing bowel causing the obstruction KUB X-Ray 02/03/19 23:29 IMPRESSION: A nasogastric tube tip is in the body of the stomach Electronically Signed: Alejandro Nguyen MD at 2:33 EDT Tel , Service support , Operations: - - Exploratory laparoscopy converted to mini laparotomy, small bowel resection, repair of left spigelian hernia 02/04/19 Procedures: None Summary of Care Provided: The patient is a 63 year old F resents to the ER 02/03/19 due to diffuse abdominal pain initially started in the left lower quadrant. Patient states she had several episodes of previous pain starting in the left lower quadrant however these did not last as long. Patient states she has had some nausea denies any vomiting. Patient underwent a CT abdomen pelvis which did show bowel obstruction however the spigelian hernia in the left lower quadrant was not called on the initial report which did contain bowel and was the cause of the obstruction. This was unable to be reduced at bedside. Patient's white blood count was also 16.9 on admit. Patient was taken to the OR for exploratory laparoscopy converted to mini laparotomy, small bowel resection, repair of left spigelian hernia. Postoperatively patient did well was kept n.p.o. with IV fluids until she was able to regain bowel function and have a bowel movement. By postop day 2 patient did have flatus as well as a bowel movement was able to be started on clear liquids then advance to soft diet. Postop day 3 she had been tolerating soft diet ambulating pains been controlled was able be discharged home. - Physical Exam General: Alert, Oriented x3, Cooperative, No apparent distress HEENT: Atraumatic Lungs: Normal air movement Cardiovascular: Regular rate Abdomen: Soft, Non-Distended, Tender - Near incision appropriately, incision clean dry and intact with Steri-Strips Extremities: No clubbing, No cyanosis, No edema Neurological: Cranial nerves II-XII grossly intact Psych/Mental Status: Normal Affect Vital Signs Temp Pulse Resp BP Pulse Ox 98.1 F 74 16 122/81 H 96 02/07/19 09:37 02/07/19 09:37 02/07/19 09:37 02/07/19 09:37 02/07/19 09:37 Oxygen Delivery Method Room Air Weight: 144 lb 13.499 oz Body Mass Index (BMI) 27.3 Intake and Output for Last 24 Hours 02/05/19 02/06/19 02/07/19 23:59 23:59 23:59 Intake Total 2471 / 2471 2366 / 2366 960 / 960 Output Total 1000 / 1000 2125 / 2125 2800 / 2800 Balance 1471 / 1471 241 / 241 -1840 / -1840 Discharge Diet: Light diet - advance as tolerated Discharge Activity: May not drive while taking narcotic pain medications., May Shower Call your doctor if your incision/area has: Continuous Slow Oozing, Sudden Increased Bleeding, Increased Pain/ Swelling, Increased Redness, Foul Smelling Discharge, Swelling at the incision site Call your doctor if you observe: Fever of 101 or Higher Cleanse incision/area with: Soap & Water - Do not scrub but okay for water to run over the area Home Medications: Medications to take at Discharge Aspirin [Aspir-Low] 81 mg PO DAILY 12/25/16 Biotin 5 mg PO DAILY 12/25/16 Calcium Carbonate/Vitamin D3 [Caltrate 600 Plus D3 Tablet] 1 each PO DAILY 12/25/16 Cyanocobalamin (Vitamin B-12) [Vitamin B12] 2,500 mcg PO DAILY 12/25/16 Levothyroxine [Synthroid] 25 mcg PO DAILY 12/25/16 Losartan/Hydrochlorothiazide [Losartan-Hctz 50-12.5 mg Tab] 1 each PO DAILY 12/25/16 [place]-3S/Dha/Epa/Fish Oil [Fish Oil [place]-3 Softgel] 1 each PO DAILY 12/25/16 Vitamin E 400 unit PO DAILY 12/25/16 Oxycodone HCl/Acetaminophen [Percocet 5/325] 1 - 2 tablet PO Q6H PRN PRN 4 Days #15 tablet 02/07/19 Following Prescrptions Were Given to Patient: Oxycodone HCl/Acetaminophen [Percocet 5/325] 1 - 2 tablet PO Q6H PRN PRN 4 Days #15 tablet PRN Reason: Pain Primary Care Physician: Isai Leon Chi, MD [Primary Care Provider] - Please Follow Up With: Thi Sanchez MD - After 5:00/weekends call [phone] with any questions When: Call the office [phone] for a follow-up appointment 2 weeks Additional Instructions: Okay to take ibuprofen 400-600 mg PO q6hr PRN along with the oxycodone. Avoid Tylenol since there is already Tylenol in the oxycodone. Take all pain meds with food. Oxycodone can cause constipation recommend taking daily stool softener (i.e. Colace/docusate) while taking the pain meds. Disposition: Home Minutes spent on discharge:: 15 Patient Condition:: Good Medical Necessity - Tobacco Use Smoking Status: Former smoker Meaningful Use Info Meaningful Use Diagnoses (Choose all that apply): None applicable
== END 2019-02-07 09:48 | disposition home or self-care (01) | DRG 331 ==
LOC: ED 23:36 → MS3 02-04 00:18
PROVIDERS: Admitting Provider Surgery; Emergency Provider Emergency Medicine; Family Provider Family Medicine Geriatric Medicine; PCP Family Medicine Geriatric Medicine; Visit Provider Surgery
PROC: 0WQF4ZZ Repair Abdominal Wall, Percutaneous Endoscopic Approach (ICD-10-PCS; CPT 49320; principal; 2019-02-04 02:00)
DX: K43.6 Other and unspecified ventral hernia with obstruction, without gangrene (principal); Z53.31 Laparoscopic surgical procedure converted to open procedure
CPT/HCPCS: 36415; 74018; 74177; 80048; 80053; 81001; 83690; 85025; 88307; 99285; J7030; J7120; Q9967; A4216; C1760; J2405

== ENCOUNTER → 2019-06-30 10:55 | Outpatient (CLI) | payer OTHER, SELFPAY ==
[2019-02-07 12:38] VITALS: BMI 26.8
[2019-06-30 18:35] LABS: Absolute Lymphocyte Count 2.12 X10^3/uL (0.83-4.51); Absolute Neutrophil Count 5.6 X10^3/uL (2.0-7.7); Basophil% 1.2 % (0-1); Eosinophil# 0.13 X10^3/uL; Eosinophils% 1.5 % (0-5); Hematocrit 40.2 % (37-47); Hemoglobin 13.3 g/dL (12.0-15.0); Lymphocyte # 2.12 X10^3/ul (4.0); Lymphocyte % 24.9 % (19-41); Mean Corp Hgb Conc 33.1 g/dL (32-36); Mean Corpuscular Hgb 31.1 pg (27.0-32.0); Mean Corpuscular Volume 93.9 fL (81-99); Mean Platelet Vol. 10.6 fl (6.2-12.0); Monocyte# 0.54 X10^3/uL; Monocyte% 6.3 % (0-10); NRBC Flagged by Analyzer 0 % (0-5); Neutrophil # 5.62 X10^3/uL (2.7-7.7); Neutrophil % 65.9 % (47-70); Platelet Count 296 K/mm3 (150-450); RBC Distribution Width CV 12.9 % (11.6-14.6); RBC Distribution Width SD 44.5 fl (35.1-43.9); Red Blood Count 4.28 M/mm3 (4.2-5.4); White Blood Count 8.5 K/mm3 (4.4-11.0)
[2019-06-30 19:12] LABS: ALB/GLOB Ratio 1.2 RATIO (0.9-2.4); AST(SGOT) 21 U/L (15-37); Alanine Aminotransfer ALT/SGPT 18 U/L (13-56); Alkaline Phosphatase 70 U/L (45-117); Anion Gap 5 (5-15); BUN 29 mg/dL (7-18); BUN/Creat Ratio 38.3 RATIO (10-20); Calcium,Total 9.6 mg/dL (8.5-10.1); Chloride 103 mmol/L (98-107); Creatinine, Serum 0.76 mg/dL (0.55-1.02); EST Glomerular Filtration Rate 82 mL/min (>60); Est Glom Filt Rate - Afr Amer 99 mL/min (>60); Globulin 3.4 g/dL (2.2-4.2); Glucose 94 mg/dL (74-106); Potassium 3.6 mmol/L (3.5-5.1); Protein, Total 7.4 g/dL (6.4-8.2); Sodium Level 137 mmol/L (136-145); Thyroid Stim Hormone (TSH) 2.44 uIU/mL (0.358-3.74)
== END ==
PROVIDERS: Family Provider Family Medicine Geriatric Medicine; PCP Family Medicine Geriatric Medicine; Visit Provider Family Medicine Geriatric Medicine
DX: I10 Essential (primary) hypertension (principal)
CPT/HCPCS: 36415; 80053; 84443; 85025

== ENCOUNTER → 2019-07-04 10:08 | Outpatient (CLI) | payer OTHER, SELFPAY ==
[2019-02-07 12:38] VITALS: BMI 26.8
--- NOTE | 2019-07-04 10:10 | BI_ITS ---
MAMMOGRAPHY - BILATERAL SCREENING REASON FOR EXAM: Female, 64 years old. Routine annual screening examination. PERTINENT HISTORY: Aunt with breast cancer. TECHNIQUE: Digital bilateral breast emerald (3D mammographic acquisition) in the CC and MLO projections. 2-D mediolateral oblique (MLO) and craniocaudad (CC) views of both breasts were obtained. CAD: Full Field Digital Mammography with Computer Added Detection was performed. COMPARISON: Comparison is made with prior study dated June 30, 2018 and June 29, 2017. FINDINGS: Breast Composition: There are scattered areas of fibroglandular density. There are no dominant masses or suspicious calcifications. Stable appearance of the bilateral axillary lymph nodes. Stable coarse benign-appearing calcifications bilaterally. No other significant abnormalities are identified. There has been no significant change since the prior study. BI/SCREEN MAMM (CAD) W/EMERALD BILAT IMPRESSION: Stable bilateral screening mammogram. Yearly follow-up mammogram recommended. (A) ASSESSMENT CATEGORY: BIRADS Category 2: Benign. A letter regarding these results will be sent to the patient by the facility within 30 days. Approximately 10% of breast cancers are not detected by mammography. A normal mammogram should not delay biopsy of a clinically suspicious abnormality. [id number] Electronically Signed: Harjinder Wan, at 12:38 EDT , Service support ,
== END ==
PROVIDERS: Family Provider Family Medicine Geriatric Medicine; PCP Family Medicine Geriatric Medicine; Referring Provider Obstetrics & Gynecology; Visit Provider Obstetrics & Gynecology
DX: Z12.31 Encounter for screening mammogram for malignant neoplasm of breast (principal)
CPT/HCPCS: 77063; 77067

== ENCOUNTER → 2019-10-17 17:39 | Outpatient (CLI) | payer OTHER, SELFPAY ==
[2019-02-07 12:38] VITALS: BMI 26.8
[2019-10-17 19:20] LABS: Thyroid Stim Hormone (TSH) 2.77 uIU/mL (0.358-3.74)
== END ==
PROVIDERS: Family Provider Family Medicine Geriatric Medicine; PCP Family Medicine Geriatric Medicine; Referring Provider Family Medicine Geriatric Medicine; Visit Provider Family Medicine Geriatric Medicine
DX: E03.9 Hypothyroidism, unspecified (principal)
CPT/HCPCS: 36415; 84443

== ENCOUNTER 2019-11-17 05:45 | Day surgery (SDC) | payer OTHER, SELFPAY ==
--- NOTE | 2019-10-25 02:19 | HP_ITS ---
Intake Vital Signs 10/25/19 Body Mass Index (BMI) 26.8 Intake Visit Reasons: BULGE AT HERNIA INCISION/ SURG 01/2019 Chief Complaint: ABDOMINAL PAIN/CRAMPING Data Entry Associate Required: No Is patient in pain?: No Allergies No Known Allergies Allergy (Verified 10/25/19 13:42) Medications Aspirin [Aspir-Low] 81 mg PO DAILY 12/25/16 [History Confirmed 10/25/19] Biotin 5 mg PO DAILY 12/25/16 [History Confirmed 10/25/19] Calcium Carbonate/Vitamin D3 [Caltrate 600 Plus D3 Tablet] 1 ea PO DAILY 12/25/16 [History Confirmed 10/25/19] Cyanocobalamin (Vitamin B-12) [Vitamin B12] 2,500 mcg PO DAILY 12/25/16 [History Confirmed 10/25/19] Levothyroxine [Synthroid] 25 mcg PO DAILY 12/25/16 [History Confirmed 10/25/19] Losartan/Hydrochlorothiazide [Losartan-Hctz 50-12.5 mg Tab] 1 ea PO DAILY 12/25/16 [History Confirmed 10/25/19] [place]-3S/Dha/Epa/Fish Oil [Fish Oil [place]-3 Softgel] 1 ea PO DAILY 12/25/16 [History Confirmed 10/25/19] Vitamin E 400 unit PO DAILY 12/25/16 [History Confirmed 10/25/19] PFSH Medical History Small bowel obstruction (Acute) Surgical History History of resection of small bowel (Acute ~02/04/19) HPI HPI HPI: SHARON VANCE, is a 64 F who presents to the office today for HPI HPI Surgical H&P: Yes HPI: SHARON VANCE, is a 64 F who presents to the office today for incisional hernia patient status post small bowel resection due to small bowel obstruction from a left spigelian hernia. Patient states that in August she noticed a bulge at her lower midline incision. Patient states she denies any pain, is having bowel function and passing flatus denies any nausea or vomiting and states it is reducible. Exam Const General: cooperative, comfortable, no acute distress Resp Effort & Inspection: normal respiratory effort Cardio Rate: regular rate GI Inspection: non-distended Palpation: soft, no guarding, hernia (Lower midline incision, reducible), nontender Extrem General: no clubbing, cyanosis or edema Psych Affect: normal affect Assessment & Plan Problems 1. Incisional hernia of anterior abdominal wall without obstruction or gangrene K43.2 Plan Plan to do an incisional hernia repair with mesh. Reviewed the procedure with the patient including the risks, including but not limited to infection?that may require removal of mesh, bleeding, injury to the small bowel, and recurrence. All questions were answered. Also, discussed risk of strangulated bowel. Cautioned the patient that if she has N/V, ABD distention, increased umbilical pain or changes of the skin over the hernia she needs to go to the ER. Patient no further questions this time. Thi Sanchez M.D. Pager: [phone] [facility] [address] [place] [address], [address] [place] [address] Office: [phone] Plan Detail Follow Up We will schedule incisional hernia repair with mesh Coding Level of Care Code Off vis,est,level 3 Diagnoses Incisional hernia of anterior abdominal wall without obstruction or gangrene K43.2 10/25/19 1419 <Electronically signed by Thi Schmitt am, MD> Date _ Thi Sanchez MD I have re-examined the patient. There are no clinical changes since date of exam.
[2019-10-25 13:42] VITALS: BMI 26.8
[2019-11-17 06:20] VITALS: BP 131/75; PULSE 64; RESP 16; TEMP 37.1; O2SAT 98; BMI 27.4
[2019-11-17] MEDS: Lactated Ringers 1,000 ML 100 ML IV (06:45)
[2019-11-17 07:21] LABS: Anion Gap 6 (5-15); BUN 18 mg/dL (7-18); BUN/Creat Ratio 24.6 RATIO (10-20); Calcium,Total 9.2 mg/dL (8.5-10.1); Chloride 108 mmol/L (98-107); Creatinine, Serum 0.73 mg/dL (0.55-1.02); EST Glomerular Filtration Rate 85 mL/min (>60); Est Glom Filt Rate - Afr Amer 103 mL/min (>60); Estimated Creatinine Clearance 59.52 ml/min; Glucose 101 mg/dL (74-106); Potassium 3.9 mmol/L (3.5-5.1); Sodium Level 142 mmol/L (136-145)
[2019-11-17] MEDS: Cefazolin 2 GM in 0.9% Normal Saline 100 ML IV (07:29)
--- NOTE | 2019-11-17 07:30 | HERN_PTH ---
PATIENT: SHARON VANCE LOC: [facility] [place] U#:[id number] AGE/SX: 64/F ROOM: RE11/17/[address]: Dr. Thi Sanchez MD : [id number] BED: DIS: 11/17/2019 SPEC #: [id number] RECD: 11/17/19 09:37 STATUS: CHETAN REHamida #: [id number] JULIEN: 11/17/19 07:[address]: Thi Sanchez DEPT: SURGICAL PATHOLOGY RECD BY: Miriam Fishman ENTERED: 11/17/19 10:40 SP TYPE: Hernia OTHR DR: Dr. Isai Leon MD Tissues: HERNIA Procedures: Surgery Specimen Level II HEADER OPERATION: Hernia, incisional repair with mesh PRE-OP DIAGNOSIS: Incisional hernia of anterior abdominal wall without obstruction or gangrene TISSUE SUBMITTED: Hernia sac MICROSCOPIC DIAGNOSIS Soft tissue, anterior abdominal wall, excision: Hernia sac with fibrosis. AM:jay 11/20/19 MICROSCOPIC DESCRIPTION Slides are reviewed. GROSS DESCRIPTION Received in fixative is one container labeled with the patient's name and designated hernia sac. The specimen consists of two glistening fragments of pink-cruz soft tissue measuring in aggregate 4.2 x 4 x 1 cm. Serial sections do not reveal mass lesions. Technology Strategist sections are submitted in one cassette. / AM:jay 11/17/19 TC:5 CPT: 95972
[2019-11-17] MEDS: Bupiv/Epi 0.5% Mpf 30 ML Vial (08:15)
--- NOTE | 2019-11-17 08:36 | PCM.OPRPT ---
Report of Operation Date of Procedure: 11/17/19 Pre-Operative Diagnosis: Incisional hernia Post-Operative Diagnosis: Same Surgery/Procedure Performed:: Incisional hernia repair with mesh Type of Anesthesia:: General/Supplemental Anesthesiologist: Giacomo Melissa Special Medications: Ancef 2 g IV x1 Specimen's removed: Hernia sac Estimated Blood Loss (mL): < 10 cc Fluids Replaced: 1000 cc Description of Procedure: Patient was brought into the room placed supine on the operating table. Correct patient, procedure, site, positioning, special, was verified prior to procedure. General anesthesia was induced. The abdomen was prepped draped in usual sterile fashion. The lower half of the lower midline incision was re-incised with a 15 blade scalpel. This was deepened with electrocautery. The fascia around the hernia defect was cleared and the hernia defect measured 2 cm x 1 cm. The hernia sac was from the fascia and closed with 3-0 Vicryl. Extra hernia sac was excised and sent to pathology. Ventralex ST hernia patch (small prairie band?4.3 cm lot [facility] U1987 ref [id number]) was placed in the preperitoneal space. 1-0 Nurolon suture to secure the straps laterally. The fascia was closed with 2 [id number] 1-0 Nurolon sutures also securing the inferior and superior portions of the mesh with the sutures. The wound was irrigated with saline. Hemostasis was assured. The incision was closed with subdermal sutures of interrupted 3-0 Vicryl and a running suture of 4-0 Monocryl. Steri-Strips and Tegaderm and OpSite were placed over the incision. Patient was extubated. Patient tolerated procedure well and was taken to the postanesthesia care unit in stable condition. Grafts/Implants Used: Ventralex ST hernia patch (small prairie band?4.3 cm lot [facility] U1987 ref [id number]) - Complications None - Admit VTE Documentation VTE Present on Admission: Yes VTE Mechan Device Prophylaxis: SCD's
--- NOTE | 2019-11-17 08:45 | PCM.DC.GS ---
Discharge Diet: Light diet - advance as tolerated Discharge Activity: May not drive while taking narcotic pain medications. May shower in (days): 1 Lifting Restrictions: No lifting greater than 20 pounds x 3 weeks Call your doctor if your incision/area has: Continuous Slow Oozing, Sudden Increased Bleeding, Increased Pain/ Swelling, Increased Redness, Foul Smelling Discharge, Swelling at the incision site Call your doctor if you observe: Fever of 101 or Higher Remove Dressing in (days):: 1 Additional Instructions: Okay to take ibuprofen 400-600 mg PO q6hr PRN along with the Percocet. Avoid Tylenol since there is already Tylenol in the Percocet. Take all pain meds with food. Percocet can cause constipation recommend taking daily stool softener (i.e. Colace/docusate) while taking the pain meds. Recommend starting some MiraLAX in 1 to 2 days if no bowel movement. If still no bowel movement following day recommend taking magnesium citrate half the bottle and waiting 4-6 hours if still no results take the other half the bottle. Allergies/Adverse Reactions: Allergies No Known Allergies Allergy (Verified 11/17/19 06:18) Medications to take at Discharge Aspirin [Aspir-Low] 81 mg PO DAILY 12/25/16 Biotin 5 mg PO DAILY 12/25/16 Calcium Carbonate/Vitamin D3 [Caltrate 600 Plus D3 Tablet] 1 ea PO DAILY 12/25/16 Cyanocobalamin (Vitamin B-12) [Vitamin B12] 2,500 mcg PO DAILY 12/25/16 Levothyroxine [Synthroid] 25 mcg PO DAILY 12/25/16 Losartan/Hydrochlorothiazide [Losartan-Hctz 50-12.5 mg Tab] 1 ea PO DAILY 12/25/16 [place]-3S/Dha/Epa/Fish Oil [Fish Oil [place]-3 Softgel] 1 ea PO DAILY 12/25/16 Vitamin E 400 unit PO DAILY 12/25/16 Oxycodone HCl/Acetaminophen [Percocet 5/325] 1 - 2 tablet PO Q6H PRN PRN 4 Days #15 tablet 11/17/19 The following prescriptions were given: Oxycodone HCl/Acetaminophen [Percocet 5/325] 1 - 2 tablet PO Q6H PRN PRN 4 Days #15 tablet PRN Reason: Pain Transmission Status: Sent to [facility] Primary Care Physician: Isai Leon Chi, MD [Primary Care Provider] - Test Results: Test results from this visit will be discussed in further detail at your follow-up appointment, if applicable. Please Follow Up With: Thi Sanchez MD - After 5 PM and on the weekends call [phone] with any concerns When: Call office for follow-up in 2 weeks Proposed Discharge Date: 11/17/19
[2019-11-17 08:50] VITALS: BP 105/65; BP 131/75; PULSE 90; RESP 18; TEMP 37; O2SAT 97
[2019-11-17 08:55] VITALS: BP 110/71; BP 131/75; PULSE 90; RESP 18; O2SAT 98
[2019-11-17 09:00] VITALS: BP 111/67; BP 131/75; PULSE 82; RESP 16; O2SAT 96
[2019-11-17 09:16] VITALS: BP 118/79; BP 131/75; PULSE 74; RESP 16; TEMP 36.7; O2SAT 98
[2019-11-17 10:38] VITALS: BP 119/70; BP 131/75; PULSE 62; RESP 16; TEMP 36.6; O2SAT 100
== END 2019-11-17 10:46 | disposition home or self-care (01) ==
LOC: SDC 05:46 → AC 05:47
PROVIDERS: Anesthesiology; Family Provider Family Medicine Geriatric Medicine; PCP Family Medicine Geriatric Medicine; Referring Provider Surgery; Visit Provider Surgery
PROC: (CPT 49654; principal; 2019-11-17 07:15)
DX: K43.2 Incisional hernia without obstruction or gangrene (principal); I10 Essential (primary) hypertension; E07.9 Disorder of thyroid, unspecified; Z79.899 Other long term (current) drug therapy; Z87.891 Personal history of nicotine dependence
CPT/HCPCS: 49654; 36415; 80048; 88302; J7120; C1781; J2405

== ENCOUNTER → 2020-03-15 | Outpatient (CLI) | payer OTHER, SELFPAY ==
--- NOTE | 2020-03-15 12:24 | RAD_ITS ---
STUDY: X-RAY - LEFT HAND REASON FOR EXAM: Female, 64 years old. PAIN S/P FALL 1 WEEK AGO TECHNIQUE: 3 view(s) of the hand. COMPARISON: None. FINDINGS: Normal radiocarpal articulation. Normal distal radioulnar joint. Normal visualized carpal bones. Normal carpal articulations Normal carpometacarpal articulation of the thumb. Normal second through fifth carpometacarpal joints. Normal metacarpi. There is degenerative arthrosis of the metacarpophalangeal (MCP) joints. Normal interphalangeal joint of the thumb. Normal proximal and distal phalanges of the thumb. Normal metacarpophalangeal joints of the second through fifth fingers. Normal proximal and distal interphalangeal joints of the second through fifth fingers. Normal phalanges of the second through fifth fingers. The soft tissue structures are unremarkable. RAD/Hand Min 3 Views IMPRESSION: Degenerative changes at the first carpometacarpal joint. Electronically Signed: Harjinder Wan, at 15:12 EDT , Service support ,
--- NOTE | 2020-03-15 12:24 | RAD_ITS ---
STUDY: X-RAY - LEFT HUMERUS REASON FOR EXAM: Female, 64 years old. PAIN S/P FALL 1 WEEK AGO TECHNIQUE: 2 view(s) of the humerus. COMPARISON: None. FINDINGS: Normal visualized humerus. There is no demonstrated fracture or osseous destructive process. There is no demonstrated soft tissue abnormality. RAD/Humerus min 2 Views IMPRESSION: Normal x-ray examination of the humerus. Electronically Signed: Harjinder Wan, at 15:11 EDT , Service support ,
--- NOTE | 2020-03-15 12:24 | RAD_ITS ---
STUDY: X-RAY - LEFT RADIUS AND ULNA REASON FOR EXAM: Female, 64 years old. PAIN S/P FALL 1 WEEK AGO TECHNIQUE: 2 view(s) of the forearm. COMPARISON: None. FINDINGS: There is no demonstrated soft tissue swelling. Normal visualized radius. Normal visualized ulna. RAD/Forearm 2 Views IMPRESSION: Normal x-ray examination of the radius and ulna. Electronically Signed: Harjinder Wan, at 15:11 EDT , Service support ,
== END | disposition home or self-care (01) ==
LOC: RAD 12:19
PROVIDERS: PCP Family Medicine Geriatric Medicine; Referring Provider Family Medicine Geriatric Medicine; Visit Provider Family Medicine Geriatric Medicine
DX: M79.602 Pain in left arm (principal); M79.642 Pain in left hand; M25.522 Pain in left elbow; M25.532 Pain in left wrist
CPT/HCPCS: 73060; 73090; 73130

== ENCOUNTER → 2020-05-08 | Outpatient (CLI) | payer OTHER, SELFPAY ==
--- NOTE | 2020-05-08 13:09 | NEURO ---
NCS and/or EMG Patient Report Ordering Doctor: Isai Leon Chi DATE OF SERVICE: 05/08/20 Anna Cleveland is a 64-year-old female presents for electrodiagnostic testing of the upper limbs. She reports numbness and weakness in both hands. Electrodiagnostic findings: Median motor nerve demonstrates prolonged distal latency on the right side with normal amplitude and reduced conduction velocity. Left median motor nerve demonstrates prolonged distal latency with normal amplitude and conduction velocity. Normal ulnar motor response bilaterally. Normal median and ulnar F waves. On needle EMG, all muscles tested showed no evidence of denervation with normal motor unit action potentials. Electrodiagnostic impression: This is an abnormal study in the upper limbs. 1. Electrodiagnostic findings demonstrate bilateral median mononeuropathy. This is consistent with a moderate right carpal tunnel syndrome and a mild left carpal tunnel syndrome. 2. No electrodiagnostic evidence is noted for cervical radiculopathy. If there are any further questions, please do not hesitate to contact me.
== END | disposition home or self-care (01) ==
LOC: PSN 09:39
PROVIDERS: PCP Family Medicine Geriatric Medicine; Referring Provider Family Medicine Geriatric Medicine; Visit Provider Family Medicine Geriatric Medicine
DX: R20.2 Paresthesia of skin (principal)
CPT/HCPCS: 95886; 95912

== ENCOUNTER → 2020-06-27 09:45 | Outpatient (CLI) | payer OTHER, SELFPAY ==
[2020-06-27 12:27] LABS: Absolute Lymphocyte Count 1.75 X10^3/uL (0.83-4.51); Absolute Neutrophil Count 6.3 X10^3/uL (2.0-7.7); Anion Gap 3 (5-15); BUN 17 mg/dL (7-18); BUN/Creat Ratio 23.7 RATIO (10-20); Basophil# 0.07 X10^3/uL; Basophil% 0.8 % (0-1); Calcium,Total 9.3 mg/dL (8.5-10.1); Chloride 104 mmol/L (98-107); Creatinine, Serum 0.72 mg/dL (0.55-1.02); EST Glomerular Filtration Rate 87 mL/min (>60); Eosinophil# 0.13 X10^3/uL; Eosinophils% 1.5 % (0-5); Est Glom Filt Rate - Afr Amer 105 mL/min (>60); Glucose 93 mg/dL (74-106); Hematocrit 39.9 % (37-47); Hemoglobin 12.9 g/dL (12.0-15.0); Lymphocyte # 1.75 X10^3/ul (4.0); Lymphocyte % 19.6 % (19-41); Mean Corp Hgb Conc 32.3 g/dL (32-36); Mean Corpuscular Hgb 31.5 pg (27.0-32.0); Mean Corpuscular Volume 97.6 fL (81-99); Mean Platelet Vol. 10.2 fl (6.2-12.0); Monocyte# 0.67 X10^3/uL; Monocyte% 7.5 % (0-10); NRBC Flagged by Analyzer 0 % (0-5); Neutrophil # 6.27 X10^3/uL (2.7-7.7); Neutrophil % 70.4 % (47-70); Platelet Count 318 K/mm3 (150-450); Potassium 3.4 mmol/L (3.5-5.1); RBC Distribution Width SD 46.5 fl (35.1-43.9); Red Blood Count 4.09 M/mm3 (4.2-5.4); Sodium Level 139 mmol/L (136-145); White Blood Count 8.9 K/mm3 (4.4-11.0)
== END ==
PROVIDERS: PCP Family Medicine Geriatric Medicine; Visit Provider Family Medicine Geriatric Medicine
DX: R06.89 Other abnormalities of breathing (principal)
CPT/HCPCS: 36415; 80048; 85025

== ENCOUNTER → 2020-06-27 18:00 | Outpatient (CLI) | payer OTHER, SELFPAY | PROVIDERS: PCP Family Medicine Geriatric Medicine; Referring Provider Family Medicine Geriatric Medicine; Visit Provider Family Medicine Geriatric Medicine | DX: R06.89 Other abnormalities of breathing (principal) | CPT/HCPCS: 87635; 94799; U0003 ==

== ENCOUNTER → 2020-07-01 13:51 | Outpatient (CLI) | payer OTHER, SELFPAY ==
[2020-07-01 16:14] LABS: Anion Gap 5 (5-15); BUN 22 mg/dL (7-18); BUN/Creat Ratio 33.6 RATIO (10-20); Calcium,Total 9.7 mg/dL (8.5-10.1); Chloride 102 mmol/L (98-107); Creatinine, Serum 0.66 mg/dL (0.55-1.02); EST Glomerular Filtration Rate 97 mL/min (>60); Est Glom Filt Rate - Afr Amer 117 mL/min (>60); Glucose 107 mg/dL (74-106); Potassium 3.7 mmol/L (3.5-5.1); Sodium Level 137 mmol/L (136-145)
== END ==
PROVIDERS: PCP Family Medicine Geriatric Medicine; Visit Provider Family Medicine Geriatric Medicine
DX: E87.6 Hypokalemia (principal)
CPT/HCPCS: 36415; 80048

== ENCOUNTER → 2020-07-02 08:56 | Outpatient (CLI) | payer OTHER, SELFPAY ==
--- NOTE | 2020-07-02 09:01 | BD_ITS ---
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 COMPARISON: None. FINDINGS: Lumbar Spine (L1-L4): g/cm2 (0.986) / T-score (-1.6) / Z-score (-0.1) Findings are suggestive of osteopenia with mild increase fracture risk. Left Femur Total: g/cm2 (0.837) / T-score (-1.4) / Z-score (0.2) Left Femoral Neck: g/cm2 (0.737) / T-score (-2.2) / Z-score (0.8) Right Femur Total: g/cm2 (0.804) / T-score (-1.6) / Z-score (-0.5) Right Femoral Neck: g/cm2 (0.765) / T-score (-2.0) / Z-score (-0.6) The T-Scores on the most recent prior examination were: Lumbar Spine (L1-L4): There has been -3.7% change of bone density since the previous examination. Left Femur Total: -2% change bone of density since the previous examination. . Right Femur Total: -2.5% change of bone density since the previous examination. . BD/Dexa Bone Density Study IMPRESSION: The patient is considered moderate osteopenia in the lumbar spine and right hip and mild osteopenia in the left hip as outlined below according to World Mathew Organization (WHO) criteria with a mild increase fracture risk. There has been -3.7% change of bone density in the lumbar spine, -2% change of bone density in the left hip and -2.5% change in bone density in the right hip since the previous examination. Reference Information: The T-score is the number of standard deviations above or below the standard which is normal for young adults at their peak bone mineral density. The World Health Organization (WHO) interprets the T-scores as follows: Above -1 Normal bone density Between -1 and -2.5 Osteopenia Equal to / or below -2.5 Osteoporosis As a practical clinical guideline, osteopenia may be graded as follows: Mild -1 through -1.5 Moderate -1.6 through -2.0 Severe -2.1 through -2.4 The Z-score is the number of standard deviations above or below age-matched controls. A Z-score of less than -1.5 would be considered abnormal. References: 1. NIH Osteoporosis and Related Bone Diseases http://www.osteo.org 2. International Society for Clinical Densitometry http://www.iscd.org 3. National Osteoporosis Foundation http://www.nof.org Electronically Signed: Roberto Noble MD at 16:32 EDT , Service support ,
== END ==
PROVIDERS: PCP Family Medicine Geriatric Medicine; Referring Provider Family Medicine Geriatric Medicine; Visit Provider Family Medicine Geriatric Medicine
DX: Z78.0 Asymptomatic menopausal state (principal)
CPT/HCPCS: 77080

== ENCOUNTER → 2020-07-04 | Outpatient (CLI) | payer OTHER, SELFPAY ==
[2020-07-04 10:53] VITALS: BMI 27.4
[2020-07-08 20:31] LABS: HPV APTIMA, High Risk Negative (Negative)
== END | disposition home or self-care (01) ==
LOC: LABSPEC 12:41
PROVIDERS: PCP Family Medicine Geriatric Medicine; Referring Provider Nurse Practitioner Women's Health; Visit Provider Nurse Practitioner Women's Health
DX: Z12.4 Encounter for screening for malignant neoplasm of cervix (principal)
CPT/HCPCS: 87624; 88175; G0145

== ENCOUNTER → 2020-07-08 | Outpatient (CLI) | payer OTHER, SELFPAY ==
[2020-07-04 10:53] VITALS: BMI 27.4
[2020-07-08 16:08] LABS: Absolute Neutrophil Count 5.6 X10^3/uL (2.0-7.7); Basophil# 0.07 X10^3/uL; Basophil% 0.8 % (0-1); Eosinophil# 0.22 X10^3/uL; Eosinophils% 2.4 % (0-5); Hematocrit 41.1 % (37-47); Hemoglobin 13.7 g/dL (12.0-15.0); Lymphocyte % 27.4 % (19-41); Mean Corp Hgb Conc 33.3 g/dL (32-36); Mean Platelet Vol. 10.6 fl (6.2-12.0); Monocyte# 0.73 X10^3/uL; NRBC Flagged by Analyzer 0 % (0-5); Neutrophil # 5.59 X10^3/uL (2.7-7.7); Neutrophil % 61.2 % (47-70); Platelet Count 342 K/mm3 (150-450); RBC Distribution Width CV 12.7 % (11.6-14.6); RBC Distribution Width SD 44.6 fl (35.1-43.9); Red Blood Count 4.28 M/mm3 (4.2-5.4); White Blood Count 9.1 K/mm3 (4.4-11.0)
[2020-07-08 16:42] LABS: Anion Gap 6 (5-15); BUN 25 mg/dL (7-18); BUN/Creat Ratio 37.1 RATIO (10-20); Calcium,Total 9.3 mg/dL (8.5-10.1); Chloride 101 mmol/L (98-107); Creatinine, Serum 0.67 mg/dL (0.55-1.02); EST Glomerular Filtration Rate 94 mL/min (>60); Est Glom Filt Rate - Afr Amer 113 mL/min (>60); Glucose 86 mg/dL (74-106); Potassium 3.9 mmol/L (3.5-5.1); Sodium Level 136 mmol/L (136-145); Thyroid Stim Hormone (TSH) 1.93 uIU/mL (0.358-3.74)
== END | disposition home or self-care (01) ==
LOC: POLAB3 14:45
PROVIDERS: PCP Family Medicine Geriatric Medicine; Visit Provider Family Medicine Geriatric Medicine
DX: E87.6 Hypokalemia (principal); I10 Essential (primary) hypertension
CPT/HCPCS: 36415; 80048; 84443; 85025

== ENCOUNTER → 2020-07-17 07:18 | Outpatient (CLI) | payer OTHER, SELFPAY ==
[2020-07-04 10:53] VITALS: BMI 27.4
--- NOTE | 2020-07-17 07:19 | BI_ITS ---
MAMMOGRAPHY - BILATERAL SCREENING REASON FOR EXAM: Female, 65 years old. Routine annual screening examination. PERTINENT HISTORY: Aunt with breast cancer. TECHNIQUE: Digital bilateral breast emerald (3D mammographic acquisition) in the CC and MLO projections. 2-D mediolateral oblique (MLO) and craniocaudad (CC) views of both breasts were obtained. CAD: Full Field Digital Mammography with Computer Added Detection was performed. COMPARISON: Comparison is made with prior examination dated 07/04/2019 and 06/30/2018. FINDINGS: Breast Composition: There are scattered areas of fibroglandular density. There are no dominant masses or suspicious calcifications. Stable benign appearing bilateral axillary lymph nodes. No other significant abnormalities are identified. There has been no significant change since the prior study. BI/SCREEN MAMM (CAD) W/EMERALD BILAT IMPRESSION: Stable bilateral screening mammogram. Yearly follow-up mammogram recommended. (A) ASSESSMENT CATEGORY: BIRADS Category 2: Benign. A letter regarding these results will be sent to the patient by the facility within 30 days. Approximately 10% of breast cancers are not detected by mammography. A normal mammogram should not delay biopsy of a clinically suspicious abnormality. [id number] Electronically Signed: Harjinder Wan, at 8:27 EDT , Service support ,
== END ==
PROVIDERS: PCP Family Medicine Geriatric Medicine; Referring Provider Nurse Practitioner Women's Health; Visit Provider Nurse Practitioner Women's Health
DX: Z12.31 Encounter for screening mammogram for malignant neoplasm of breast (principal); Z80.3 Family history of malignant neoplasm of breast
CPT/HCPCS: 77063; 77067

== ENCOUNTER → 2020-08-21 | Outpatient (CLI) | payer OTHER, SELFPAY ==
[2020-07-04 10:53] VITALS: BMI 27.4
[2020-08-21 11:39] LABS: Absolute Lymphocyte Count 1.91 X10^3/uL (0.83-4.51); Absolute Neutrophil Count 4.5 X10^3/uL (2.0-7.7); Basophil# 0.07 X10^3/uL; Eosinophil# 0.12 X10^3/uL; Eosinophils% 1.7 % (0-5); Hematocrit 42.7 % (37-47); Hemoglobin 14.1 g/dL (12.0-15.0); Lymphocyte # 1.91 X10^3/ul (4.0); Lymphocyte % 26.7 % (19-41); Mean Corpuscular Hgb 31.5 pg (27.0-32.0); Mean Corpuscular Volume 95.3 fL (81-99); Mean Platelet Vol. 9.8 fl (6.2-12.0); NRBC Flagged by Analyzer 0 % (0-5); Neutrophil # 4.54 X10^3/uL (2.7-7.7); Neutrophil % 63.3 % (47-70); Platelet Count 316 K/mm3 (150-450); RBC Distribution Width CV 12.3 % (11.6-14.6); RBC Distribution Width SD 42.9 fl (35.1-43.9); Red Blood Count 4.48 M/mm3 (4.2-5.4); White Blood Count 7.2 K/mm3 (4.4-11.0)
[2020-08-21 12:06] LABS: ALB/GLOB Ratio 1.1 RATIO (0.9-2.4); AST(SGOT) 25 U/L (15-37); Alanine Aminotransfer ALT/SGPT 21 U/L (13-56); Albumin, Serum 3.9 g/dL (3.2-5.0); Alkaline Phosphatase 69 U/L (45-117); Amylase 62 U/L (25-115); Anion Gap 3 (5-15); BUN 20 mg/dL (7-18); BUN/Creat Ratio 28.5 RATIO (10-20); Chloride 104 mmol/L (98-107); EST Glomerular Filtration Rate 89 mL/min (>60); Est Glom Filt Rate - Afr Amer 108 mL/min (>60); Globulin 3.7 g/dL (2.2-4.2); Glucose 92 mg/dL (74-106); Lipase 151 U/L (73-393); Potassium 3.5 mmol/L (3.5-5.1); Protein, Total 7.6 g/dL (6.4-8.2); Sodium Level 138 mmol/L (136-145)
--- NOTE | 2020-08-21 13:25 | CT_ITS ---
STUDY: CT ABDOMEN AND PELVIS WITH CONTRAST REASON FOR EXAM: Female, 65 years old. LLQ PAIN. HX OF CAROLA BOWEL RESECTION AND MESH HERNIA REPAIR. RADIATION DOSAGE (If Supplied By Facility): CTDIvol = ( 13.05 ) mGy, DLP = ( 483.67 ) mGycm TECHNIQUE: Transaxial images were obtained from the dome of the diaphragm to the symphysis pubis with oral contrast. Oral and amp; IV Gastrografin and amp; 100mL Isovue-300 was administered. Sagittal and coronal images were reconstructed. Individualized dose optimization techniques were used for this CT. COMPARISON: Comparison is made with prior study dated 02/03/2019. FINDINGS: Minimal degree of dependent bibasilar atelectasis. The visualized portions of the heart are within normal limits. Mild degree of intrahepatic biliary ductal dilatation. This is normal for the post cholecystectomy state. There are surgical clips in the gallbladder fossa consistent with a prior cholecystectomy. Normal spleen. Normal pancreas. Normal bilateral adrenal glands. There is a 1.7 cm cyst in the midportion of the right kidney. This is unchanged. Normal left kidney. Normal visualized stomach. Anastomosis is seen in the small bowel in the left lower quadrant. Moderate amount of fecal material is seen in the colon. The appendix is visualized and appears normal. Normal abdominal aorta. Normal inferior vena cava. Normal retroperitoneum. Normal urinary bladder. There is a 2 cm x 3.4 cm cyst in the left adnexa. There is prominence of the venous structures in the region of the uterus. There is a small umbilical hernia containing fat. Small bilateral inguinal hernias containing fat slightly larger on the left side. Normal osseous structures. CT/Abdomen/Pelvis WITH Contrast IMPRESSION: 2 cm x 3.4 cm cyst in the left adnexa. Stable right renal cyst. Status post cholecystectomy with mild central intrahepatic biliary ductal dilatation. Electronically Signed: Harjinder Wan, at 14:05 EDT , Service support ,
== END | disposition home or self-care (01) ==
PROVIDERS: PCP Family Medicine Geriatric Medicine; Referring Provider Family Medicine Geriatric Medicine; Visit Provider Family Medicine Geriatric Medicine
DX: K57.32 Diverticulitis of large intestine without perforation or abscess without bleeding (principal); R10.9 Unspecified abdominal pain
CPT/HCPCS: 36415; 74177; 80053; 82150; 83690; 85025; Q9967

== ENCOUNTER → 2020-09-09 | Outpatient (CLI) | payer OTHER, SELFPAY ==
[2020-07-04 10:53] VITALS: BMI 27.4
--- NOTE | 2020-09-09 13:48 | US_ITS ---
STUDY: ULTRASOUND OF THE FEMALE PELVIS - COMPLETE REASON FOR EXAM: Female, 65 years old. LEFT ADNEXAL CYST SEEN ON PREVIOUS CT. LMP: TECHNIQUE: Transabdominal and transvaginal TECHNICAL QUALITY: Adequate. COMPARISON: CT 08/21/2020 FINDINGS: The uterus is anteverted and is in a midline position. The uterus measures 3 x 4.1 x 2.2 cm. Normal uterine cervix. The endometrium measures 2 mm in thickness, and is hyperechoic. There is no demonstrated endometrial mass. There is no demonstrated myometrial mass. I.U.D. - The patient does not have an I.U.D. The right ovary is is not visualized. There is no adnexal mass. The left ovary is visualized. The left ovary measures 2.3 x 2.5 x 2.1 cm. There is a cyst measuring 2.7 x 2.2 x 1.7 cm There is no visualized left adnexal mass or complex lesion. There is normal arterial and normal venous vascularity. There is no fluid in the cul-de-sac. US/Pelvic (Non ) IMPRESSION: Small left ovarian cyst measuring 2.7 x 2.2 x 1.7 cm Electronically Signed: Travis Dick MD at 22:45 EDT , Service support ,
--- NOTE | 2020-09-09 13:48 | US_ITS ---
STUDY: ULTRASOUND OF THE FEMALE PELVIS - COMPLETE REASON FOR EXAM: Female, 65 years old. LEFT ADNEXAL CYST SEEN ON PREVIOUS CT. LMP: TECHNIQUE: Transabdominal and transvaginal TECHNICAL QUALITY: Adequate. COMPARISON: CT 08/21/2020 FINDINGS: The uterus is anteverted and is in a midline position. The uterus measures 3 x 4.1 x 2.2 cm. Normal uterine cervix. The endometrium measures 2 mm in thickness, and is hyperechoic. There is no demonstrated endometrial mass. There is no demonstrated myometrial mass. I.U.D. - The patient does not have an I.U.D. The right ovary is is not visualized. There is no adnexal mass. The left ovary is visualized. The left ovary measures 2.3 x 2.5 x 2.1 cm. There is a cyst measuring 2.7 x 2.2 x 1.7 cm There is no visualized left adnexal mass or complex lesion. There is normal arterial and normal venous vascularity. There is no fluid in the cul-de-sac. US/Transvaginal Non- IMPRESSION: Small left ovarian cyst measuring 2.7 x 2.2 x 1.7 cm Electronically Signed: Travis Dick MD at 22:45 EDT , Service support ,
== END | disposition home or self-care (01) ==
LOC: OPUS 13:48
PROVIDERS: PCP Family Medicine Geriatric Medicine; Referring Provider Obstetrics & Gynecology; Visit Provider Obstetrics & Gynecology
DX: N94.9 Unspecified condition associated with female genital organs and menstrual cycle (principal)
CPT/HCPCS: 76830; 76856; 93976

== ENCOUNTER → 2020-10-21 13:47 | Outpatient (CLI) | payer OTHER, SELFPAY ==
[2020-10-08 13:35] VITALS: BMI 26.3
--- NOTE | 2020-10-21 13:48 | US_ITS ---
STUDY: ULTRASOUND OF THE FEMALE PELVIS - COMPLETE REASON FOR EXAM: Female, 65 years old. f/u LTO CYST LMP: Postmenopausal. TECHNIQUE: Transabdominal and Transvaginal TECHNICAL QUALITY: Adequate. COMPARISON: Pelvic ultrasound 09/09/2020. CT scan abdomen and pelvis 08/21/2020. FINDINGS: The uterus is anteverted and is in a midline position. The uterus measures 5.3 x 4.3 x 2.1 cm. Normal uterine cervix. The endometrium measures 2.4 mm in thickness, and is hyperechoic. There is no demonstrated endometrial mass. The myometrium is heterogeneous and appears to contain multiple small calcified and noncalcified leiomyomas. These range up to about 4 mm. I.U.D. - The patient does not have an I.U.D. The right ovary is visualized. The right ovary measures 1.8 x 1.8 x 1.7 cm. There is no right ovarian cyst or ovarian mass. There is no visualized right adnexal mass or complex lesion. There is normal arterial and normal venous vascularity. The left ovary is visualized. The left ovary measures 3.3 x 2.6 x 2.1 cm. There is a simple appearing left ovarian cyst which measures 3.0 x 2.3 x 1.8 cm. There is no definite change from last previous study, taking into account differences in measurement cursor placement. There is no visualized left adnexal mass or complex lesion. There is normal arterial and normal venous vascularity. There is no fluid in the cul-de-sac. The pre void volume of the bladder was 463 ml. The post void volume of the bladder was not measured. Polycystic ovary disease: No. US/Transvaginal Non- IMPRESSION: 3 cm simple appearing left ovarian cyst, with no definite change from previous studies. A small degenerating leiomyomas of the uterus. The uterus is not enlarged. Electronically Signed: Familia Morrison MD at 6:13 EST , Service support ,
--- NOTE | 2020-10-21 13:48 | US_ITS ---
STUDY: ULTRASOUND OF THE FEMALE PELVIS - COMPLETE REASON FOR EXAM: Female, 65 years old. f/u LTO CYST LMP: Postmenopausal. TECHNIQUE: Transabdominal and Transvaginal TECHNICAL QUALITY: Adequate. COMPARISON: Pelvic ultrasound 09/09/2020. CT scan abdomen and pelvis 08/21/2020. FINDINGS: The uterus is anteverted and is in a midline position. The uterus measures 5.3 x 4.3 x 2.1 cm. Normal uterine cervix. The endometrium measures 2.4 mm in thickness, and is hyperechoic. There is no demonstrated endometrial mass. The myometrium is heterogeneous and appears to contain multiple small calcified and noncalcified leiomyomas. These range up to about 4 mm. I.U.D. - The patient does not have an I.U.D. The right ovary is visualized. The right ovary measures 1.8 x 1.8 x 1.7 cm. There is no right ovarian cyst or ovarian mass. There is no visualized right adnexal mass or complex lesion. There is normal arterial and normal venous vascularity. The left ovary is visualized. The left ovary measures 3.3 x 2.6 x 2.1 cm. There is a simple appearing left ovarian cyst which measures 3.0 x 2.3 x 1.8 cm. There is no definite change from last previous study, taking into account differences in measurement cursor placement. There is no visualized left adnexal mass or complex lesion. There is normal arterial and normal venous vascularity. There is no fluid in the cul-de-sac. The pre void volume of the bladder was 463 ml. The post void volume of the bladder was not measured. Polycystic ovary disease: No. US/Pelvic (Non ) IMPRESSION: 3 cm simple appearing left ovarian cyst, with no definite change from previous studies. A small degenerating leiomyomas of the uterus. The uterus is not enlarged. Electronically Signed: Familia Morrison MD at 6:13 EST , Service support ,
== END ==
PROVIDERS: PCP Family Medicine Geriatric Medicine; Referring Provider Obstetrics & Gynecology; Visit Provider Obstetrics & Gynecology
DX: N83.209 Unspecified ovarian cyst, unspecified side (principal)
CPT/HCPCS: 76830; 76856

== ENCOUNTER → 2020-11-13 | Outpatient (CLI) | payer OTHER, SELFPAY ==
[2020-10-08 13:35] VITALS: BMI 26.3
== END | disposition home or self-care (01) ==
LOC: LABSPEC 17:22
PROVIDERS: PCP Family Medicine Geriatric Medicine; Referring Provider Family Medicine Geriatric Medicine; Visit Provider Family Medicine Geriatric Medicine
DX: U07.1 COVID-19 (principal)
CPT/HCPCS: 87633; 87635; C9803; U0003

== ENCOUNTER → 2021-04-10 12:24 | Outpatient (CLI) | payer OTHER, SELFPAY ==
[2021-03-26 10:47] VITALS: BMI 28.0
--- NOTE | 2021-04-10 12:28 | STE_ITS ---
Reason For Study: Family HX of CAD; Chest Pain Stress Results Protocol: Tawanda Protocol Maximum Predicted HR: 156 bpm Target HR: 133 bpm % Maximum Predicted HR: 99 % DurationHeart Rate Stage (mm:ss) (bpm) BP Comment Baseline 63 126/70No Chest Pain T[place]anda Protocol Stage I 3:00 121 130/76No Chest Pain T[place]anda Protocol Stage II 3:00 134 160/68No Chest Pain T[place]anda Protocol Stage III 3:00 148 162/72No Chest Pain; Dyspnea Tawanda Protocol Stage IV 0:31 155 / No Chest Pain; Mild Dyspnea Recovery 90 130/84No Chest Pain; No Dyspnea Stress Duration: 9:31 mm:ss Maximum Stress HR: 155 bpm METS: 11 Baseline Echocardiogram Findings Stress Echo Wall motion Data Resting WM Intermediate WM Stress WM ECHO/Stress Test Echo w/o Contrast Interpretation Summary Exercise stress echo. 65-year-old male with a history of hypertension and hyperlipidemia. Stress protocol: Resting EKG demonstrates normal sinus rhythm with a rate of 66 bpm normal inter vals are noted resting blood pressure is 126/70 mmHg. The patient exercised according to the r egular Tawanda protocol for a total duration of 9 minutes and 30 seconds. Patient completed 30 seconds into stage IV of the Tawanda protocol. The maximum heart rate attained was 164 bpm which was 105% of m aximum predicted heart rate the maximum workload was 11.7 metabolic equivalents. At rest there w ere no ST or T wave changes noted to suggest ischemia and at peak exercise upsloping ST changes wer e noted with did not meet the criteria for ischemia. No clinical angina was noted the test was termi nated due to the target heart rate being achieved. Good blood pressure response to exercise was noted Stress echocardiogram. Stress echocardiographic images were obtained after resting images were obtaine d. The resting ejection fraction was 55%. On stress imaging there was thickening of all multani and reduction of left ventricular cavity size peaking at 65%. No wall motion abnormalities were noted to suggest ischemia. Conclusion: Exercise stress echo with no EKG or echocardiographic criteria for ischemia. Excellent functional capacity. Ordering Physician: Raza Encarnacion Referring Physician: Isai Leon Chi Performed By: Shena Carter RDCS
== END ==
PROVIDERS: PCP Family Medicine Geriatric Medicine; Referring Provider Internal Medicine Cardiovascular Disease; Visit Provider Internal Medicine Cardiovascular Disease
DX: R07.9 Chest pain, unspecified (principal); I10 Essential (primary) hypertension; E78.5 Hyperlipidemia, unspecified
CPT/HCPCS: 93017; 93350

== ENCOUNTER → 2021-07-09 09:31 | Outpatient (CLI) | payer MEDICARE, SELFPAY ==
[2021-07-09 12:52] LABS: Absolute Neutrophil Count 3.8 X10^3/uL (2.0-7.7); Basophil# 0.08 X10^3/uL; Basophil% 1.2 % (0-1); Eosinophil# 0.19 X10^3/uL; Eosinophils% 2.9 % (0-5); Hematocrit 40.9 % (37-47); Hemoglobin 13.4 g/dL (12.0-15.0); Lymphocyte % 29.5 % (19-41); Mean Corp Hgb Conc 32.8 g/dL (32-36); Mean Corpuscular Hgb 31.2 pg (27.0-32.0); Mean Corpuscular Volume 95.3 fL (81-99); Mean Platelet Vol. 10.7 fl (6.2-12.0); Monocyte# 0.47 X10^3/uL; Monocyte% 7.3 % (0-10); NRBC Flagged by Analyzer 0 % (0-5); Neutrophil # 3.79 X10^3/uL (2.7-7.7); Neutrophil % 58.8 % (47-70); Platelet Count 297 K/mm3 (150-450); RBC Distribution Width SD 46.4 fl (35.1-43.9); Red Blood Count 4.29 M/mm3 (4.2-5.4); White Blood Count 6.5 K/mm3 (4.4-11.0)
[2021-07-09 13:12] LABS: ALB/GLOB Ratio 1.1 RATIO (0.9-2.4); AST(SGOT) 22 U/L (15-37); Alanine Aminotransfer ALT/SGPT 22 U/L (13-56); Alkaline Phosphatase 71 U/L (45-117); Anion Gap 8 (5-15); BUN 23 mg/dL (7-18); BUN/Creat Ratio 35.7 RATIO (10-20); Calcium,Total 9.4 mg/dL (8.5-10.1); Chloride 102 mmol/L (98-107); Creatinine, Serum 0.64 mg/dL (0.55-1.02); EST Glomerular Filtration Rate 98 mL/min (>60); Est Glom Filt Rate - Afr Amer 119 mL/min (>60); Globulin 3.7 g/dL (2.2-4.2); Glucose 94 mg/dL (74-106); Potassium 3.8 mmol/L (3.5-5.1); Protein, Total 7.7 g/dL (6.4-8.2); Sodium Level 138 mmol/L (136-145); Thyroid Stim Hormone (TSH) 3.56 uIU/mL (0.358-3.74)
[2021-07-09 13:21] LABS: Vitamin D,25 Hydroxy 79.1 ng/mL
== END ==
PROVIDERS: PCP Family Medicine Geriatric Medicine; Visit Provider Family Medicine Geriatric Medicine
DX: I10 Essential (primary) hypertension (principal); E55.9 Vitamin D deficiency, unspecified
CPT/HCPCS: 36415; 80053; 82306; 84443; 85025; 86769

== ENCOUNTER → 2021-07-18 07:53 | Outpatient (CLI) | payer MEDICARE, SELFPAY ==
[2021-03-26 10:47] VITALS: BMI 28.0
--- NOTE | 2021-07-18 07:58 | BI_ITS ---
MAMMOGRAPHY - BILATERAL SCREENING REASON FOR EXAM: Female, 66 years old. Routine annual screening examination. PERTINENT HISTORY: Aunt with breast cancer. TECHNIQUE: Digital bilateral breast emerald (3D mammographic acquisition) in the CC and MLO projections. 2-D mediolateral oblique (MLO) and craniocaudad (CC) views of both breasts were obtained. CAD: Full Field Digital Mammography with Computer Added Detection was performed. COMPARISON: Comparison is made with prior examination dated 07/17/2020 and 07/04/2019. FINDINGS: Breast Composition: The breasts are heterogeneously dense, which may obscure small masses. There are no dominant masses or suspicious calcifications. Stable benign-appearing bilateral axillary lymph nodes. No other significant abnormalities are identified. There has been no significant change since the prior study. BI/SCRN MAMM (CAD)W/EMERALD BILAT IMPRESSION: Stable bilateral screening mammogram. Yearly follow-up mammogram recommended. (A) ASSESSMENT CATEGORY: BIRADS Category 2: Benign. A letter regarding these results will be sent to the patient by the facility within 30 days. Approximately 10% of breast cancers are not detected by mammography. A normal mammogram should not delay biopsy of a clinically suspicious abnormality. [id number] Electronically Signed: Harjinder Wan MD at 9:13 EDT , Service support ,
== END ==
PROVIDERS: PCP Family Medicine Geriatric Medicine; Referring Provider Nurse Practitioner Women's Health; Visit Provider Nurse Practitioner Women's Health
DX: Z12.31 Encounter for screening mammogram for malignant neoplasm of breast (principal)
CPT/HCPCS: 77063; 77067

== ENCOUNTER → 2021-10-22 12:50 | Outpatient (CLI) | payer MEDICARE, OTHER, SELFPAY ==
[2020-10-08 13:35] VITALS: BMI 26.3
--- NOTE | 2021-10-22 12:52 | US_ITS ---
STUDY: ULTRASOUND OF THE FEMALE PELVIS - COMPLETE REASON FOR EXAM: Female, 66 years old. cyst TECHNIQUE: Endovaginal. Transvaginal US was obtained to better visualized the ovaries. COMPARISON: Sep 09 2020 2:16pm 11.30.20 . FINDINGS: The uterus is anteverted and is in a midline position. The uterus measures 5.7x4 cm. Normal uterine cervix. The endometrium measures 3.3 mm in thickness, and is hyperechoic. There is no demonstrated endometrial mass. Calcification of the uterus suggesting fibroids. I.U.D. - The patient does not have an I.U.D. The right ovary is visualized. The right ovary measures 2.8 x1.3 cm. There is no right ovarian cyst or ovarian mass. There is no visualized right adnexal mass or complex lesion. There is normal arterial and normal venous vascularity. The left ovary is visualized. The left ovary measures 5x2.8 cm. Cyst visualized measuring 34 x 23 mm. There is no visualized left adnexal mass or complex lesion. There is normal arterial and normal venous vascularity. There is no fluid in the cul-de-sac. Urinary bladder volume is 357 cc. US/Transvaginal Non- IMPRESSION: Calcified fibroid uterus. There is an enlarging cystic lesion of the left ovary. It has solid and echogenic components which may be calcifications. This can be a dermoid. ACR White Paper guidelines (Ventura, et. al. Radiology 2010; 256(3):943-954) suggest surgical evaluation or yearly pelvic ultrasound follow-up to document stability. Electronically Signed: Juan Antonio Bah MD at 14:34 EST , Service support ,
--- NOTE | 2021-10-22 12:52 | US_ITS ---
STUDY: ULTRASOUND OF THE FEMALE PELVIS - COMPLETE REASON FOR EXAM: Female, 66 years old. cyst TECHNIQUE: Endovaginal. Transvaginal US was obtained to better visualized the ovaries. COMPARISON: Sep 09 2020 2:16pm 11.30.20 . FINDINGS: The uterus is anteverted and is in a midline position. The uterus measures 5.7x4 cm. Normal uterine cervix. The endometrium measures 3.3 mm in thickness, and is hyperechoic. There is no demonstrated endometrial mass. Calcification of the uterus suggesting fibroids. I.U.D. - The patient does not have an I.U.D. The right ovary is visualized. The right ovary measures 2.8 x1.3 cm. There is no right ovarian cyst or ovarian mass. There is no visualized right adnexal mass or complex lesion. There is normal arterial and normal venous vascularity. The left ovary is visualized. The left ovary measures 5x2.8 cm. Cyst visualized measuring 34 x 23 mm. There is no visualized left adnexal mass or complex lesion. There is normal arterial and normal venous vascularity. There is no fluid in the cul-de-sac. Urinary bladder volume is 357 cc. US/Pelvic (Non ) IMPRESSION: Calcified fibroid uterus. There is an enlarging cystic lesion of the left ovary. It has solid and echogenic components which may be calcifications. This can be a dermoid. ACR White Paper guidelines (Ventura, et. al. Radiology 2010; 256(3):943-954) suggest surgical evaluation or yearly pelvic ultrasound follow-up to document stability. Electronically Signed: Juan Antonio Bah MD at 14:34 EST , Service support ,
== END ==
PROVIDERS: PCP Family Medicine Geriatric Medicine; Visit Provider Obstetrics & Gynecology
DX: N83.202 Unspecified ovarian cyst, left side (principal)
CPT/HCPCS: 76830; 76856

== ENCOUNTER → 2021-10-27 11:39 | Outpatient (CLI) | payer MEDICARE, OTHER, SELFPAY ==
[2021-10-28 12:43] LABS: Cancer Antigen 125 15.2 U/mL (0.0-38.1); Carcinoembryonic Antigen 3.1 ng/mL (0.0-4.7)
== END ==
PROVIDERS: PCP Family Medicine Geriatric Medicine; Visit Provider Obstetrics & Gynecology
DX: N83.202 Unspecified ovarian cyst, left side (principal)
CPT/HCPCS: 36415; 82378; 86304

== ENCOUNTER 2022-02-04 09:45 | Outpatient (CLI) | payer MEDICARE, OTHER, SELFPAY ==
--- NOTE | 2022-02-04 09:50 | US_ITS ---
History: Ovarian cyst Pelvic ultrasound: Comparison: October 22, 2021 Findings: Transabdominal and endovaginal ultrasound imaging of the pelvis demonstrates the uterus to measure 5 cm in length. Endometrial thickness measures less than 3 mm. Right ovary not identified. Stable 3.3 x 2.0 cm left ovarian/adnexal cyst. IMPRESSION: Stable left ovarian/adnexal cyst. U Consensus Conference guidelines (Ventura, et. al. Radiology 2019;293:359-371) recommend follow-up pelvic ultrasound in 1 year or at 2 years from initial study (whichever is later). at 1117 Reported and signed by: Joao Ruiz MD Electronically Signed: Joao Ruiz MD at 11:16 EDT , US/Pelvic (Non )
--- NOTE | 2022-02-04 09:50 | US_ITS ---
History: Ovarian cyst Pelvic ultrasound: Comparison: October 22, 2021 Findings: Transabdominal and endovaginal ultrasound imaging of the pelvis demonstrates the uterus to measure 5 cm in length. Endometrial thickness measures less than 3 mm. Right ovary not identified. Stable 3.3 x 2.0 cm left ovarian/adnexal cyst. IMPRESSION: Stable left ovarian/adnexal cyst. U Consensus Conference guidelines (Ventura, et. al. Radiology 2019;293:359-371) recommend follow-up pelvic ultrasound in 1 year or at 2 years from initial study (whichever is later). at 1117 Reported and signed by: Joao Ruiz MD Electronically Signed: Joao Ruiz MD at 11:16 EDT , US/Transvaginal Non-
== END 2022-02-04 23:59 | disposition home or self-care (01) ==
LOC: US 09:49
PROVIDERS: PCP Family Medicine Geriatric Medicine; Referring Provider Obstetrics & Gynecology; Visit Provider Obstetrics & Gynecology
DX: N83.202 Unspecified ovarian cyst, left side (principal)
CPT/HCPCS: 76830; 76856

== ENCOUNTER 2022-02-24 16:41 | Outpatient (CLI) | payer MEDICARE, OTHER, SELFPAY | END 2022-02-24 23:59 | disposition home or self-care (01) | LOC: POLAB3 16:43 | PROVIDERS: PCP Family Medicine Geriatric Medicine; Visit Provider Family Medicine Geriatric Medicine | DX: N39.0 Urinary tract infection, site not specified (principal) | CPT/HCPCS: 87077; 87086; 87088; 87186 ==

== ENCOUNTER → 2022-04-03 | Outpatient (CLI) | payer MEDICARE, OTHER, SELFPAY ==
--- NOTE | 2022-04-03 08:54 | NEURO ---
NCS and/or EMG Patient Report Ordering Doctor: Pascual Sullivan DATE OF SERVICE: 04/03/22 Indication: Intermittent numbness and tingling of both feet upon standing. Fixed numbness in the second toe of the right foot. History of plantar fascitis. No radicular back pain. Evaluate for peripheral neuropathy. Findings: Nerve conduction studies were performed in the bilateral lower extremities. The right peroneal motor study recording the extensor digitorum brevis showed a normal amplitude, normal distal latency and normal conduction velocity. No conduction block or focal slowing was present across the fibular neck. The right tibial motor study recording the abductor hallucis brevis showed a normal amplitude, normal distal latency and normal conduction velocity. Right sural sensory response showed a normal amplitude and conduction velocity. Right superficial peroneal sensory response showed a normal amplitude and conduction velocity. Right medial plantar sensory response showed a reduced amplitude and normal conduction velocity. The left peroneal motor study recording the extensor digitorum brevis showed a normal amplitude, normal distal latency and normal conduction velocity. No conduction block or focal slowing was present across the fibular neck. The left tibial motor study recording the abductor hallucis brevis showed a normal amplitude, normal distal latency and normal conduction velocity. Left sural sensory response showed a normal amplitude and conduction velocity. Left superficial peroneal sensory response showed a normal amplitude and conduction velocity. Left medial plantar sensory response showed a normal amplitude and conduction velocity. Needle EMG of the bilateral lower extremity muscles was performed. No denervation was present in any muscle. Motor unit morphology, activation, and recruitment patterns were normal. Impression: This is a mildly abnormal study. 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 However, there is no evidence of a generalized peripheral polyneuropathy. Please note: routine nerve conduction studies and needle EMG assess the larger, myelinated motor and sensory fibers. Thus, routine electrodiagnostic studies may be insensitive in detecting a peripheral neuropathy restricted to small fibers alone (i.e., pain, temperature and autonomic fibers). However, most peripheral neuropathies with predominantly small fiber large dysfunction will also involve large fibers to a lesser extent, and will demonstrate abnormalities on electrodiagnostic studies. Thus, clinical correlation is required in the interpretation of this electrodiagnostic study if an isolated small fiber neuropathy is considered. Vipul Nguyen D.O. Multi Select Codes Neurology Neurology Interp Codes: 61859-82 Musc test done w/n test comp (interp) (Qty: 2) and 90332-24 Nrv cndj test 9-10 studies (interp)
== END | disposition home or self-care (01) ==
LOC: PSN 07:03
PROVIDERS: PCP Family Medicine Geriatric Medicine; Referring Provider Podiatrist; Visit Provider Podiatrist
DX: M79.2 Neuralgia and neuritis, unspecified (principal); R20.0 Anesthesia of skin; R20.2 Paresthesia of skin
CPT/HCPCS: 95886; 95911

== ENCOUNTER → 2022-04-13 | Outpatient (CLI) | payer MEDICARE, OTHER, SELFPAY ==
--- NOTE | 2022-04-13 10:36 | RAD_ITS ---
STUDY: X-RAY - RIGHT WRIST REASON FOR EXAM: Female, 66 years old. Right wrist pain. TECHNIQUE: 3 view(s) of the wrist were obtained. COMPARISON: None. FINDINGS: Osteopenia. Normal visualized distal radius and ulna. Normal radiocarpal articulation. Normal distal radioulnar articulation. Normal carpal bones. Mild arthrosis of the radial carpal row. Moderate arthrosis of the first CMC joint. Normal second through fifth carpometacarpal articulations. Normal visualized metacarpal bones. The soft tissue structures are unremarkable. RAD/Wrist min 3 Views IMPRESSION: Osteopenia with radial carpal row and first CMC joint arthrosis. No other abnormality. Electronically Signed: Billy Cowan MD at 11:25 EDT ,
--- NOTE | 2022-04-13 10:36 | RAD_ITS ---
STUDY: X-RAY - LEFT WRIST REASON FOR EXAM: Female, 66 years old. Wrist pain. TECHNIQUE: 3 view(s) of the wrist were obtained. COMPARISON: Left hand images dated 03/15/2020. FINDINGS: Osteopenia unchanged. Moderate arthrosis of the radiocarpal row unchanged. Moderate to marked arthrosis of the first CMC joint. The soft tissue structures are unremarkable. RAD/Wrist min 3 Views IMPRESSION: Stable osteopenia with osteoarthritic changes as described. No acute abnormality. Electronically Signed: Billy Cowan MD at 11:24 EDT ,
[2022-04-13 12:37] LABS: Erythrocyte Sedimentation Rate 2 mm/hr (0-30)
[2022-04-13 12:44] LABS: Absolute Lymphocyte Count 2.41 X10^3/uL (0.83-4.51); Absolute Neutrophil Count 6.3 X10^3/uL (2.0-7.7); Basophil% 1.1 % (0-1); Eosinophil# 0.13 X10^3/uL; Eosinophils% 1.4 % (0-5); Hemoglobin 13.3 g/dL (12.0-15.0); Lymphocyte # 2.41 X10^3/ul (0.83-4.51); Lymphocyte % 25.5 % (19-41); Mean Corp Hgb Conc 33.3 g/dL (32-36); Mean Corpuscular Hgb 31.3 pg (27.0-32.0); Mean Corpuscular Volume 94.1 fL (81-99); Mean Platelet Vol. 10.6 fl (6.2-12.0); Monocyte# 0.54 X10^3/uL; Monocyte% 5.7 % (0-10); NRBC Flagged by Analyzer 0 % (0-5); Neutrophil # 6.26 X10^3/uL (2.7-7.7); Neutrophil % 66.1 % (47-70); Platelet Count 319 K/mm3 (150-450); RBC Distribution Width CV 12.6 % (11.6-14.6); RBC Distribution Width SD 43.7 fl (35.1-43.9); Red Blood Count 4.25 M/mm3 (4.2-5.4); White Blood Count 9.5 K/mm3 (4.4-11.0)
[2022-04-13 13:05] LABS: Anion Gap 4 (5-15); BUN 21 mg/dL (7-18); BUN/Creat Ratio 27.7 RATIO (10-20); CRP < 2.90 mg/L (0.0-3.0); Calcium,Total 9.8 mg/dL (8.5-10.1); Chloride 103 mmol/L (98-107); Creatinine, Serum 0.76 mg/dL (0.55-1.02); EST Glomerular Filtration Rate 81 mL/min (>60); Est Glom Filt Rate - Afr Amer 98 mL/min (>60); Glucose 99 mg/dL (74-106); Potassium 3.8 mmol/L (3.5-5.1); Sodium Level 138 mmol/L (136-145); Uric Acid 3.9 mg/dL (2.6-6.0)
== END | disposition home or self-care (01) ==
PROVIDERS: PCP Family Medicine Geriatric Medicine; Referring Provider Family Medicine Geriatric Medicine; Visit Provider Family Medicine Geriatric Medicine
DX: M25.539 Pain in unspecified wrist (principal)
CPT/HCPCS: 36415; 73110; 80048; 84550; 85025; 85652; 86140

== ENCOUNTER → 2022-07-13 | Outpatient (CLI) | payer MEDICARE, OTHER, SELFPAY ==
[2022-07-13 12:41] LABS: Absolute Lymphocyte Count 2.22 X10^3/uL (0.83-4.51); Absolute Neutrophil Count 3.7 X10^3/uL (2.0-7.7); Basophil# 0.09 X10^3/uL; Basophil% 1.3 % (0-1); Eosinophil# 0.18 X10^3/uL; Eosinophils% 2.7 % (0-5); Hemoglobin 13.3 g/dL (12.0-15.0); Lymphocyte # 2.22 X10^3/ul (0.83-4.51); Mean Corp Hgb Conc 34.1 g/dL (32-36); Mean Corpuscular Hgb 32.3 pg (27.0-32.0); Mean Corpuscular Volume 94.7 fL (81-99); Mean Platelet Vol. 10.5 fl (6.2-12.0); Monocyte% 7.4 % (0-10); NRBC Flagged by Analyzer 0 % (0-5); Neutrophil # 3.73 X10^3/uL (2.7-7.7); Neutrophil % 55.5 % (47-70); Platelet Count 309 K/mm3 (150-450); RBC Distribution Width CV 13.1 % (11.6-14.6); RBC Distribution Width SD 45.2 fl (35.1-43.9); Red Blood Count 4.12 M/mm3 (4.2-5.4); White Blood Count 6.7 K/mm3 (4.4-11.0)
[2022-07-13 12:51] LABS: Vitamin D,25 Hydroxy 69.2 ng/mL
[2022-07-13 13:15] LABS: ALB/GLOB Ratio 1.1 RATIO (0.9-2.4); AST(SGOT) 19 U/L (15-37); Alanine Aminotransfer ALT/SGPT 16 U/L (13-56); Albumin, Serum 3.7 g/dL (3.2-5.0); Alkaline Phosphatase 64 U/L (45-117); Anion Gap 7 (5-15); BUN 21 mg/dL (7-18); BUN/Creat Ratio 29.5 RATIO (10-20); Calcium,Total 9.4 mg/dL (8.5-10.1); Chloride 104 mmol/L (98-107); Creatinine, Serum 0.71 mg/dL (0.55-1.02); EST Glomerular Filtration Rate 87 mL/min (>60); Est Glom Filt Rate - Afr Amer 106 mL/min (>60); Globulin 3.4 g/dL (2.2-4.2); Glucose 98 mg/dL (74-106); Potassium 3.6 mmol/L (3.5-5.1); Protein, Total 7.1 g/dL (6.4-8.2); Sodium Level 138 mmol/L (136-145); Thyroid Stim Hormone (TSH) 2.86 uIU/mL (0.358-3.74)
== END | disposition home or self-care (01) ==
LOC: POLAB3 09:12
PROVIDERS: PCP Family Medicine Geriatric Medicine; Referring Provider Family Medicine Geriatric Medicine; Visit Provider Family Medicine Geriatric Medicine
DX: I10 Essential (primary) hypertension (principal); E55.9 Vitamin D deficiency, unspecified
CPT/HCPCS: 36415; 80053; 82306; 84443; 85025

== ENCOUNTER → 2022-07-29 | Outpatient (CLI) | payer MEDICARE, OTHER, SELFPAY ==
--- NOTE | 2022-07-29 08:06 | BI_ITS ---
MAMMOGRAPHY - BILATERAL SCREENING REASON FOR EXAM: Female, 67 years old. Routine annual screening examination. PERTINENT HISTORY: Aunt with breast cancer. TECHNIQUE: Digital bilateral breast emerald (3D mammographic acquisition) in the CC and MLO projections. 2-D mediolateral oblique (MLO) and craniocaudad (CC) views of both breasts were obtained. CAD: Full Field Digital Mammography with Computer Added Detection was performed. COMPARISON: Comparison is made with prior study 07/18/2021 and 07/17/2020. FINDINGS: Breast Composition: The breasts are heterogeneously dense, which may obscure small masses. There are no dominant masses or suspicious calcifications. Stable small benign-appearing bilateral axillary lymph nodes. No other significant abnormalities are identified. There has been no significant change since the prior study. BI/SCRN MAMM (CAD)W/EMERALD BILAT IMPRESSION: Stable bilateral screening mammogram. Yearly follow-up mammogram recommended. (A) ASSESSMENT CATEGORY: BIRADS Category 2: Benign. A letter regarding these results will be sent to the patient by the facility within 30 days. Approximately 10% of breast cancers are not detected by mammography. A normal mammogram should not delay biopsy of a clinically suspicious abnormality. [id number] Electronically Signed: Harjinder Wan MD at 10:03 EDT ,
== END | disposition home or self-care (01) ==
LOC: OPBI 08:05
PROVIDERS: PCP Family Medicine Geriatric Medicine; Visit Provider Nurse Practitioner Women's Health
DX: Z12.31 Encounter for screening mammogram for malignant neoplasm of breast (principal)
CPT/HCPCS: 77063; 77067

== ENCOUNTER → 2023-01-28 | Outpatient (CLI) | payer MEDICARE, OTHER, SELFPAY ==
--- NOTE | 2023-01-28 13:19 | US_ITS ---
STUDY: ULTRASOUND OF THE FEMALE PELVIS - COMPLETE REASON FOR EXAM: Female, 67 years old. Ovarian cyst. LMP: TECHNIQUE: Axillary TECHNICAL QUALITY: Adequate. COMPARISON: February 04, 2022. FINDINGS: The uterus is anteverted and is in a midline position. The uterus measures 6.5 x 3.7 x 2.0 cm. There is a Nabothian cyst of the cervix. The endometrium measures 1.6 mm in thickness, and is hyperechoic. There is no demonstrated endometrial mass. There is no demonstrated myometrial mass. I.U.D. - The patient does not have an I.U.D. The right ovary is visualized. The right ovary measures 1.9 x 1.1 x 1.0 cm. There is no right ovarian cyst or ovarian mass. There is no visualized right adnexal mass or complex lesion. There is normal arterial and normal venous vascularity. The left ovary is visualized. The left ovary measures 2.7 x 2.6 x 2.3 cm. There is a 2.3 x 2.2 x 2.4 cm cyst. There is no visualized left adnexal mass or complex lesion. There is normal arterial and normal venous vascularity. There is no fluid in the cul-de-sac. The pre void volume of the bladder was 254 ml. The urinary bladder is grossly normal. Polycystic ovary disease: No. US/Pelvic w/ Transvaginal IMPRESSION: Left ovarian cyst. This appears minimally decreased in size when compared to the prior study. The study is otherwise unremarkable. SRU Consensus Conference guidelines (Ventura, et. al. Radiology 2019;293:359-371) suggest that this simple cyst is non-neoplastic. No further follow-up is necessary. Electronically Signed: Dwight Crabtree DO at 18:18 EST ,
== END | disposition home or self-care (01) ==
LOC: US 13:17
PROVIDERS: PCP Family Medicine Geriatric Medicine; Visit Provider Obstetrics & Gynecology
DX: N83.202 Unspecified ovarian cyst, left side (principal)
CPT/HCPCS: 76830; 76856

== ENCOUNTER → 2023-05-06 | Outpatient (CLI) | payer MEDICARE, OTHER, SELFPAY ==
[2023-05-06 12:23] LABS: AST(SGOT) 22 U/L (15-37); Alanine Aminotransfer ALT/SGPT 17 U/L (13-56); Albumin, Serum 3.9 g/dL (3.2-5.0); Alkaline Phosphatase 80 U/L (45-117); Bilirubin, Direct 0.13 mg/dL (0.00-0.30); Cholesterol 220 mg/dL (200); High Density Lipoprotein 76 mg/dL; Protein, Total 7.9 g/dL (6.4-8.2); Triglycerides 109 mg/dL; Very Low Density Lipoprotein 22 mg/dL (5-40)
== END | disposition home or self-care (01) ==
LOC: LAB 10:59
PROVIDERS: PCP Family Medicine Geriatric Medicine; Referring Provider Internal Medicine Cardiovascular Disease; Visit Provider Internal Medicine Cardiovascular Disease
DX: I10 Essential (primary) hypertension (principal); E78.5 Hyperlipidemia, unspecified
CPT/HCPCS: 36415; 80061; 80076

== ENCOUNTER → 2023-05-21 | Outpatient (CLI) | payer MEDICARE, OTHER, SELFPAY ==
--- NOTE | 2023-05-21 07:13 | CT_ITS ---
STUDY: CT CHEST WITHOUT CONTRAST REASON FOR EXAM: Female, 67 years old. Hypertension, family hx cardiac disease LIMITED CHEST OVER READ ONLY RADIATION DOSAGE (If Supplied By Facility): CTDIvol = ( 12.19 ) mGy, DLP = ( 195.04 ) mGycm TECHNIQUE: Transaxial imaging was performed without the administration of intravenous contrast material. Individualized dose optimization techniques were used for this CT. COMPARISON: No relevant priors. FINDINGS: CHEST Minimal increased linear markings at the lung bases suggest either basilar atelectasis or mild degree of the basilar scarring. There is a 8.3 mm bulla in the right lung. There is no demonstrated pleural abnormality. There are calcifications of the coronary arteries. Normal mediastinum. Normal hilar regions. Normal unenhanced pulmonary arteries. There is atherosclerotic calcification of the aortic arch and descending thoracic aorta. Normal osseous structures. There is no demonstrated abnormality of the visualized upper abdomen. CT/Limited Chest CT Cardiac Only IMPRESSION: Coronary artery calcification. Scarring and/or atelectasis at the right lung base. Electronically Signed: Harjinder Wan MD at 8:12 EDT ,
--- NOTE | 2023-05-21 16:13 | CA.SCORE ---
Calcium Scoring Date of Study:: 05/21/23 Indications Indications: HTN Coronary Calcium Scoring: High-resolution Computed Tomographic imaging of the chest was performed on [05/21/2023], with particular attention paid to the coronary arteries. Images from the examination were analyzed for the presence and extent of coronary artery calcification , using coronary calcium quantification software. The patient tolerated the procedure well and there were no complications. The results of the coronary calcification analysis are provided below. Findings Coronary Artery Left Main (LM): 2.8 Left Anterior Descending (LAD): 122 Left Circumflex (LCX): 0.6 Right Coronary Artery (RCA): 116 Total Agatston Score: 241.4 Percentile Rankinth-90th Calcium Scoring Interpretation: Different methods to categorize the overall amount of coronary plaque. Overall amount CAC SIS Visual of coronary plaque P1 Mild -100 <2 1-2 vessels with mild amount of plaque P2 Moderate 101-300 3-4 1-2 vessels with moderate amount, 3 vessels with mild amount of plaque P3 Severe 301-999 5-7 3 vessels with moderate amount, 1 vessel with severe amount of plaque P4 Extensive >1000 >8 2-3 vessels with severe amount of plaque Calcium Score: Moderate: 1-2 vessels w/moderate amt, 3 vessels w/mild amt of plaque Conclusion: Mild to moderate amount of nonobstructive plaque present.
== END | disposition home or self-care (01) ==
PROVIDERS: PCP Family Medicine Geriatric Medicine; Referring Provider Internal Medicine Cardiovascular Disease; Visit Provider Internal Medicine Cardiovascular Disease
DX: I10 Essential (primary) hypertension (principal)
CPT/HCPCS: 75571; 76380

== ENCOUNTER → 2023-08-06 | Outpatient (CLI) | payer MEDICARE, OTHER, SELFPAY ==
[2023-08-06 10:13] LABS: Absolute Lymphocyte Count 1.89 X10^3/uL (0.83-4.51); Absolute Neutrophil Count 3.4 X10^3/uL (2.0-7.7); Basophil# 0.07 X10^3/uL; Basophil% 1.2 % (0-1); Eosinophil# 0.15 X10^3/uL; Eosinophils% 2.5 % (0-5); Hematocrit 41.1 % (37-47); Hemoglobin 13.4 g/dL (12.0-15.0); Lymphocyte # 1.89 X10^3/ul (0.83-4.51); Lymphocyte % 31.5 % (19-41); Mean Corp Hgb Conc 32.6 g/dL (32-36); Mean Corpuscular Volume 95.1 fL (81-99); Mean Platelet Vol. 10.4 fl (6.2-12.0); Monocyte# 0.46 X10^3/uL; Monocyte% 7.7 % (0-10); NRBC Flagged by Analyzer 0 % (0-5); Neutrophil # 3.41 X10^3/uL (2.7-7.7); Neutrophil % 56.8 % (47-70); Platelet Count 304 K/mm3 (150-450); RBC Distribution Width CV 12.7 % (11.6-14.6); RBC Distribution Width SD 44.3 fl (35.1-43.9); Red Blood Count 4.32 M/mm3 (4.2-5.4)
[2023-08-06 10:40] LABS: Vitamin D,25 Hydroxy 80.4 ng/mL
[2023-08-06 10:46] LABS: ALB/GLOB Ratio 1.1 RATIO (0.9-2.4); AST(SGOT) 20 U/L (15-37); Alanine Aminotransfer ALT/SGPT 18 U/L (13-56); Albumin, Serum 3.8 g/dL (3.2-5.0); Alkaline Phosphatase 69 U/L (45-117); Anion Gap 5 (5-15); BUN 21 mg/dL (7-18); BUN/Creat Ratio 25.7 RATIO (10-20); Calcium,Total 9.2 mg/dL (8.5-10.1); Chloride 104 mmol/L (98-107); Creatinine, Serum 0.82 mg/dL (0.55-1.02); EST Glomerular Filtration Rate 74 mL/min (>60); Est Glom Filt Rate - Afr Amer 90 mL/min (>60); Globulin 3.5 g/dL (2.2-4.2); Glucose 92 mg/dL (74-106); Potassium 3.3 mmol/L (3.5-5.1); Protein, Total 7.3 g/dL (6.4-8.2); Sodium Level 138 mmol/L (136-145); Thyroid Stim Hormone (TSH) 4.21 uIU/mL (0.358-3.74)
== END | disposition home or self-care (01) ==
LOC: POLAB3 09:07
PROVIDERS: PCP Family Medicine Geriatric Medicine; Visit Provider Family Medicine Geriatric Medicine
DX: I10 Essential (primary) hypertension (principal); E55.9 Vitamin D deficiency, unspecified
CPT/HCPCS: 36415; 80053; 82306; 84443; 85025

== ENCOUNTER → 2023-09-24 | Outpatient (CLI) | payer MEDICARE, OTHER, SELFPAY ==
--- NOTE | 2023-09-24 08:05 | BI_ITS ---
MAMMOGRAPHY - BILATERAL SCREENING REASON FOR EXAM: Female, 68 years old. Routine annual screening examination. PERTINENT HISTORY: Aunt with breast cancer. TECHNIQUE: Digital bilateral breast emerald (3D mammographic acquisition) in the CC and MLO projections. 2-D mediolateral oblique (MLO) and craniocaudad (CC) views of both breasts were obtained. CAD: Full Field Digital Mammography with Computer Added Detection was performed. COMPARISON: Comparison is made with prior study date July 29, 2022 and July 18, 2021. FINDINGS: Breast Composition: The breasts are heterogeneously dense, which may obscure small masses. There are no dominant masses or suspicious calcifications. Stable small benign-appearing bilateral axillary lymph nodes. No other significant abnormalities are identified. There has been no significant change since the prior study. BI/SCRN MAMM (CAD)W/EMERALD BILAT IMPRESSION: Stable bilateral screening mammogram. Yearly follow-up mammogram recommended. (A) ASSESSMENT CATEGORY: BIRADS Category 2: Benign. A letter regarding these results will be sent to the patient by the facility within 30 days. Approximately 10% of breast cancers are not detected by mammography. A normal mammogram should not delay biopsy of a clinically suspicious abnormality. [id number] Electronically Signed: Harjinder Wan MD at 9:39 EDT ,
== END | disposition home or self-care (01) ==
LOC: OPBI 08:03
PROVIDERS: PCP Family Medicine Geriatric Medicine; Referring Provider Nurse Practitioner Women's Health; Visit Provider Nurse Practitioner Women's Health
DX: Z12.31 Encounter for screening mammogram for malignant neoplasm of breast (principal)
CPT/HCPCS: 77063; 77067

== ENCOUNTER → 2023-09-30 | Outpatient (CLI) | payer MEDICARE, OTHER, SELFPAY | END | disposition home or self-care (01) | LOC: POLAB3 14:49 | PROVIDERS: PCP Family Medicine Geriatric Medicine; Visit Provider Family Medicine Geriatric Medicine | DX: E03.9 Hypothyroidism, unspecified (principal) | CPT/HCPCS: 36415; 84443 ==

== ENCOUNTER → 2023-10-04 | Outpatient (CLI) | payer MEDICARE, OTHER, SELFPAY ==
--- NOTE | 2023-10-04 17:09 | RAD_ITS ---
STUDY: X-RAY - LUMBAR SPINE REASON FOR EXAM: Female, 68 years old. LOW BACK PAIN TECHNIQUE: 4 view(s) of the lumbar spine were obtained. COMPARISON: None FINDINGS: Normal lumbar lordosis. There is no substantial scoliosis. There is a normal alignment of the vertebrae. There is diffuse demineralization with multi-level endplate spondylosis. There is multi-level degenerative disc disease with multi-level disc space narrowing. There is no demonstrated fracture. There is no demonstrated spondylolysis of the pars interarticulares. There is atherosclerotic calcification of the abdominal aorta without a demonstrated aneurysm. Right upper quadrant surgical clips. RAD/L/S Spine Min 4 Views IMPRESSION: Mild spondylosis/degenerative disease with no acute fracture, spondylolisthesis or pars defect. Electronically Signed: Mary Crisostomo MD at 21:45 EST ,
== END | disposition home or self-care (01) ==
LOC: RAD 17:05
PROVIDERS: PCP Family Medicine Geriatric Medicine; Referring Provider Family Medicine Geriatric Medicine; Visit Provider Family Medicine Geriatric Medicine
DX: M54.50 Low back pain, unspecified (principal)
CPT/HCPCS: 72110

== ENCOUNTER → 2023-11-09 | Outpatient (CLI) | payer MEDICARE, OTHER, SELFPAY ==
[2023-11-09 18:16] LABS: Thyroid Stim Hormone (TSH) 1.94 uIU/mL (0.358-3.74)
== END | disposition home or self-care (01) ==
LOC: POLAB3 15:06
PROVIDERS: PCP Family Medicine Geriatric Medicine; Visit Provider Family Medicine Geriatric Medicine
DX: E03.9 Hypothyroidism, unspecified (principal)
CPT/HCPCS: 36415; 84443

== ENCOUNTER → 2024-05-19 | Outpatient (CLI) | payer MEDICARE, OTHER, SELFPAY ==
[2024-05-19 10:14] LABS: Absolute Lymphocyte Count 2.26 X10^3/uL (0.83-4.51); Absolute Neutrophil Count 4.8 X10^3/uL (2.0-7.7); Basophil# 0.08 X10^3/uL; Eosinophil# 0.19 X10^3/uL; Eosinophils% 2.4 % (0-5); Hematocrit 42.5 % (37-47); Hemoglobin 14.1 g/dL (12.0-15.0); Lymphocyte # 2.26 X10^3/ul (0.83-4.51); Lymphocyte % 28.6 % (19-41); Mean Corp Hgb Conc 33.2 g/dL (32-36); Mean Corpuscular Hgb 31.1 pg (27.0-32.0); Mean Corpuscular Volume 93.8 fL (81-99); Mean Platelet Vol. 9.7 fl (6.2-12.0); Monocyte# 0.53 X10^3/uL; Monocyte% 6.7 % (0-10); NRBC Flagged by Analyzer 0 % (0-5); Neutrophil # 4.83 X10^3/uL (2.7-7.7); Platelet Count 310 K/mm3 (150-450); RBC Distribution Width CV 12.8 % (11.6-14.6); Red Blood Count 4.53 M/mm3 (4.2-5.4); White Blood Count 7.9 K/mm3 (4.4-11.0)
[2024-05-19 10:17] LABS: Erythrocyte Sedimentation Rate 1 mm/hr (0-30)
[2024-05-19 11:06] LABS: AST(SGOT) 23 U/L (15-37); Alanine Aminotransfer ALT/SGPT 18 U/L (13-56); Albumin, Serum 3.9 g/dL (3.2-5.0); Alkaline Phosphatase 76 U/L (45-117); Bilirubin, Direct 0.15 mg/dL (0.00-0.30); Cholesterol 197 mg/dL (200); Globulin 3.6 g/dL (2.2-4.2); High Density Lipoprotein 84 mg/dL; Protein, Total 7.5 g/dL (6.4-8.2); Triglycerides 86 mg/dL; Very Low Density Lipoprotein 17 mg/dL (5-40)
[2024-05-19 11:08] LABS: ALB/GLOB Ratio 1.1 RATIO (0.9-2.4); AST(SGOT) 24 U/L (15-37); Alanine Aminotransfer ALT/SGPT 19 U/L (13-56); Alkaline Phosphatase 77 U/L (45-117); Anion Gap 8 (5-15); BUN 21 mg/dL (7-18); BUN/Creat Ratio 28.4 RATIO (10-20); CRP < 2.90 mg/L (0.0-3.0); Chloride 102 mmol/L (98-107); Creatinine, Serum 0.74 mg/dL (0.55-1.02); EST Glomerular Filtration Rate 83 mL/min (>60); Est Glom Filt Rate - Afr Amer 100 mL/min (>60); Globulin 3.6 g/dL (2.2-4.2); Glucose 104 mg/dL (74-106); Potassium 3.7 mmol/L (3.5-5.1); Protein, Total 7.6 g/dL (6.4-8.2); Rheumatoid Factor < 10.0 IU/mL (<15); Sodium Level 139 mmol/L (136-145)
[2024-05-22 13:07] LABS: ANTINUCLEAR ANTIBODIES DIRECT Negative (Negative)
== END | disposition home or self-care (01) ==
LOC: LAB 09:49
PROVIDERS: Internal Medicine Cardiovascular Disease; PCP Family Medicine Geriatric Medicine; Referring Provider Family Medicine Geriatric Medicine; Visit Provider Family Medicine Geriatric Medicine
DX: E78.5 Hyperlipidemia, unspecified (principal); D68.62 Lupus anticoagulant syndrome
CPT/HCPCS: 36415; 80053; 80061; 80076; 85025; 85652; 86038; 86140; 86431

== ENCOUNTER → 2024-08-10 | Outpatient (CLI) | payer MEDICARE, OTHER, SELFPAY ==
[2024-08-10 10:23] LABS: Absolute Lymphocyte Count 2.41 X10^3/uL (0.83-4.51); Absolute Neutrophil Count 5.8 X10^3/uL (2.0-7.7); Basophil# 0.14 X10^3/uL; Basophil% 1.5 % (0-1); Eosinophil# 0.29 X10^3/uL; Eosinophils% 3.1 % (0-5); Hematocrit 41.7 % (37-47); Hemoglobin 13.4 g/dL (12.0-15.0); Lymphocyte # 2.41 X10^3/ul (0.83-4.51); Lymphocyte % 25.6 % (19-41); Mean Corp Hgb Conc 32.1 g/dL (32-36); Mean Corpuscular Volume 93.5 fL (81-99); Mean Platelet Vol. 10.1 fl (6.2-12.0); Monocyte# 0.75 X10^3/uL; NRBC Flagged by Analyzer 0 % (0-5); Neutrophil # 5.81 X10^3/uL (2.7-7.7); Neutrophil % 61.5 % (47-70); Platelet Count 406 K/mm3 (150-450); RBC Distribution Width CV 12.7 % (11.6-14.6); RBC Distribution Width SD 43.7 fl (35.1-43.9); Red Blood Count 4.46 M/mm3 (4.2-5.4); White Blood Count 9.4 K/mm3 (4.4-11.0)
[2024-08-10 10:50] LABS: Vitamin D,25 Hydroxy 70.8 ng/mL
[2024-08-10 11:25] LABS: ALB/GLOB Ratio 0.9 RATIO (0.9-2.4); AST(SGOT) 22 U/L (15-37); Alanine Aminotransfer ALT/SGPT 21 U/L (13-56); Albumin, Serum 3.6 g/dL (3.2-5.0); Alkaline Phosphatase 72 U/L (45-117); Anion Gap 8 (5-15); BUN 19 mg/dL (7-18); BUN/Creat Ratio 25.8 RATIO (10-20); Calcium,Total 9.3 mg/dL (8.5-10.1); Chloride 104 mmol/L (98-107); Creatinine, Serum 0.74 mg/dL (0.55-1.02); EST Glomerular Filtration Rate 83 mL/min (>60); Est Glom Filt Rate - Afr Amer 101 mL/min (>60); Globulin 3.9 g/dL (2.2-4.2); Glucose 105 mg/dL (74-106); Potassium 3.9 mmol/L (3.5-5.1); Protein, Total 7.5 g/dL (6.4-8.2); Sodium Level 138 mmol/L (136-145)
== END | disposition home or self-care (01) ==
LOC: POLAB3 09:41
PROVIDERS: PCP Family Medicine Geriatric Medicine; Visit Provider Family Medicine Geriatric Medicine
DX: I10 Essential (primary) hypertension (principal); E55.9 Vitamin D deficiency, unspecified
CPT/HCPCS: 36415; 80053; 82306; 84443; 85025

== ENCOUNTER → 2024-10-31 | Outpatient (CLI) | payer MEDICARE, OTHER, SELFPAY ==
--- NOTE | 2024-10-31 15:18 | BI_ITS ---
MAMMOGRAPHY - BILATERAL SCREENING REASON FOR EXAM: Female, 69 years old. Routine annual screening examination. PERTINENT HISTORY: Aunt with breast cancer. TECHNIQUE: Digital bilateral breast emerald (3D mammographic acquisition) in the CC and MLO projections. 2-D mediolateral oblique (MLO) and craniocaudad (CC) views of both breasts were obtained. CAD: Full Field Digital Mammography with Computer Added Detection was performed. COMPARISON: Comparison is made with prior study September 24, 2023 and July 29, 2022. FINDINGS: Breast Composition: The breasts are heterogeneously dense, which may obscure small masses. There are no dominant masses or suspicious calcifications. Stable bilateral fat containing axillary lymph nodes. No other significant abnormalities are identified. There has been no significant change since the prior study. BI/SCRN MAMM (CAD)W/EMERALD BILAT IMPRESSION: Stable bilateral screening mammogram. Yearly follow-up mammogram recommended. (A) ASSESSMENT CATEGORY: BIRADS Category 2: Benign. A letter regarding these results will be sent to the patient by the facility within 30 days. Approximately 10% of breast cancers are not detected by mammography. A normal mammogram should not delay biopsy of a clinically suspicious abnormality. [id number] Electronically Signed: Harjinder Wan MD at 7:59 EST ,
--- NOTE | 2024-10-31 15:26 | BD_ITS ---
STUDY: DUAL ENERGY X-RAY ABSORPTIOMETRY / DXA REASON FOR EXAM: Female, 69 years old. Screening for osteoporosis TECHNIQUE: Bone Mineral Density (BMD) measurements of lumbar spine and bilateral hips were obtained. COMPARISON: Comparison is made with prior study dated July 02, 2020. FINDINGS: Lumbar Spine (L1-L4): g/cm2 (0.880) / T-score (-1.5) / Z-score (0.5) Findings are suggestive of osteopenia with a low fracture risk. Left Femur Total: g/cm2 (0.744) / T-score (-1.6) / Z-score (-0.2) Left Femoral Neck: g/cm2 (0.589) / T-score (-2.3) / Z-score (-0.6) Right Femur Total: g/cm2 (0.753) / T-score (-1.5) / Z-score (-0.1) Right Femoral Neck: g/cm2 (0.617) / T-score (-2.1) / Z-score (-0.4) The T-Scores on the most recent prior examination were: Lumbar Spine (L1-L4): There has been improvement of bone density since the previous examination. Left Femur Total: which represents a worsening of 4.1%. Right Femur Total: which represents an improvement of 1.2%. BD/Dexa Bone Density Study IMPRESSION: The patient is considered osteopenic as outlined below according to World Mathew Organization (WHO) criteria with a high fracture risk. There has been improvement of bone density since the previous examination. Reference Information: The T-score is the number of standard deviations above or below the standard which is normal for young adults at their peak bone mineral density. The World Health Organization (WHO) interprets the T-scores as follows: Above -1 Normal bone density Between -1 and -2.5 Osteopenia Equal to / or below -2.5 Osteoporosis As a practical clinical guideline, osteopenia may be graded as follows: Mild -1 through -1.5 Moderate -1.6 through -2.0 Severe -2.1 through -2.4 The Z-score is the number of standard deviations above or below age-matched controls. A Z-score of less than -1.5 would be considered abnormal. References: 1. NIH Osteoporosis and Related Bone Diseases www osteo.org 2. International Society for Clinical Densitometry www iscd.org 3. National Osteoporosis Foundation www nof.org Electronically Signed: Harjinder Wan MD at 10:35 EST ,
== END | disposition home or self-care (01) ==
LOC: OPBD 15:18
PROVIDERS: PCP Family Medicine Geriatric Medicine; Referring Provider Nurse Practitioner Women's Health; Visit Provider Nurse Practitioner Women's Health
DX: Z12.31 Encounter for screening mammogram for malignant neoplasm of breast (principal); M81.0 Age-related osteoporosis without current pathological fracture
CPT/HCPCS: 77063; 77067; 77080

== ENCOUNTER → 2025-08-13 | Outpatient (CLI) | payer MEDICARE, OTHER, SELFPAY ==
[2025-08-13 09:40] LABS: Hematocrit 40.0 % (37-47); Hemoglobin 13.2 g/dL (12.0-15.0); Immature Granulocytes Count 0.030 X10^3/uL (0.0-0.0); Mean Corp Hgb Conc 33.0 g/dL (32-36); Mean Corpuscular Volume 93.0 fL (81-99); Mean Platelet Vol. 10.4 fl (6.2-12.0); NRBC Flagged by Analyzer 0 % (0-5); Platelet Count 324 K/mm3 (150-450); RBC Distribution Width CV 12.5 % (11.6-14.6); RBC Distribution Width SD 42.8 fl (35.1-43.9); Red Blood Count 4.30 M/mm3 (4.2-5.4); White Blood Count 8.1 K/mm3 (4.4-11.0)
[2025-08-13 10:34] LABS: AST(SGOT) 27 U/L (<=31); Alanine Aminotransfer ALT/SGPT 16 U/L (<=34); Albumin, Serum 4.6 g/dL (3.4-4.8); Alkaline Phosphatase 64 U/L (35-104); Anion Gap 11 (5-15); BUN 21 mg/dL (4-19); BUN/Creat Ratio 27.5 RATIO (10-20); Calcium,Total 10.3 mg/dL (7.6-11.0); Carbon Dioxide 26.6 mmol/L (21.0-32.0); Chloride 100 mmol/L (98-108); Globulin 2.8 g/dL (2.2-4.2); Glucose 112 mg/dL (70-99); Potassium 3.9 mmol/L (3.3-5.1); Vitamin D,25 Hydroxy 69.2 ng/mL (30-100)
[2025-08-13 17:27] LABS: Xtra Tube Kwok EXTRA TUBE
== END | disposition home or self-care (01) ==
LOC: POLAB3 09:21
PROVIDERS: PCP Family Medicine Geriatric Medicine; Visit Provider Family Medicine Geriatric Medicine
DX: I10 Essential (primary) hypertension (principal)
CPT/HCPCS: 36415; 80053; 82306; 84443; 85025

== ENCOUNTER → 2025-11-02 | Outpatient (CLI) | payer MEDICARE, OTHER, SELFPAY ==
--- NOTE | 2025-11-02 08:45 | BI_ITS ---
EXAM: SCRN MAMM (CAD)W/EMERALD BILAT DATE: 11/02/2025 CLINICAL HISTORY: F, Age 70 y/o , SCREEN FOR BREAST CANCER TECHNIQUE: Procedure Code: [id number] Modality: MG Procedure: SCRN MAMM (CAD)W/EMERALD BILAT COMPARISON: Prior exam(s) dated 10/31/2024, 10/11/2023 07/29/2022. FINDINGS: TISSUE DENSITY: There are scattered areas of fibroglandular density. Bilateral Breast Mammographic Findings: No significant masses, calcifications or other abnormalities are identified. BI/SCRN MAMM (CAD)W/EMERALD BILAT IMPRESSION: There is no mammographic evidence of malignancy. OVERALL FINAL ASSESSMENT BI-RADS 1: NEGATIVE. RECOMMENDATION: Routine annual follow-up in 1 Year Additional Recommendation none A letter with findings and recommendations will be mailed to the patient. Reading Location: [id number]
== END | disposition home or self-care (01) ==
LOC: OPBI 08:41
PROVIDERS: PCP Family Medicine Geriatric Medicine; Referring Provider Nurse Practitioner Women's Health; Visit Provider Nurse Practitioner Women's Health
DX: Z12.31 Encounter for screening mammogram for malignant neoplasm of breast (principal)
CPT/HCPCS: 77063; 77067